=== PATIENT | male | born 1950 | race Caucasian/White ===

== ENCOUNTER 2017-03-23 10:48 | Emergency (ER) | payer OTHER, MEDICAID ==
[2017-03-23 11:02] VITALS: PULSE 50; RESP 18; TEMP 97.9
--- NOTE | 2017-03-23 12:22 | EDPHY ---
H & P Stated Complaint: L hip pain vs mechanical fall today - Medical/Surgical History Hx Asthma: Yes Hx Chronic Respiratory Disease: No Hx Diabetes: No Hx Cardiac Disease: Yes Hx Renal Disease: No Hx Cirrhosis: No Hx Alcoholism: Yes Hx HIV/AIDS: No Hx Splenectomy or Spleen Trauma: No Other PMH: DVT left leg, has new blockages. 3 [place], htn. DVT, PAD, CAD, CVA L side defecits, CABG, L BKA - Social History Smoking Status: Heavy smoker HPI/ROS: Chief complaint: Left hip injury History of present illness: This is a 66-year-old male brought to the emergency department by EMS after sustaining a left hip injury earlier today. Patient lost his balance and fell onto his hip. Since then he has had pain and swelling to the outer aspect of the hip. It makes it difficult to move it. No report of associated signs or symptoms including no open wounds, no abnormal coolness or paresthesias in the leg. No report of trauma to other parts of the body. (Wilbert Garcia) - Physical Exam Exam: General: Alert, nontoxic Skin: Large hematoma over the lateral aspect of the left hip. No open wounds. Musculoskeletal: Tenderness around the hematoma described above. He reports he is able to move his hip and his knee with minimal discomfort. He has limited range of motion but states this is his baseline. He does have a below- the-knee amputation. Vascular: There does appear to be good blood flow to the left lower leg with good capillary refill distally. Neurologic: Sensation does appear to be intact in the left leg. (Wilbert Garcia) Constitutional: Initial Vital Signs Temperature (C) 36.6 C 03/23/17 10:58 Heart Rate 50 L 03/23/17 10:58 Respiratory Rate 18 03/23/17 10:58 Blood Pressure 153/62 H 03/23/17 10:58 O2 Sat (%) 93 03/23/17 10:58 O2 Delivery Mode Room Air Allergies/Adverse Reactions: diazepam [From Valium] Allergy (Intermediate, Verified 09/05/14 07:50) becomes violent midazolam HCl [From Versed] Allergy (Intermediate, Verified 09/05/14 07:50) becomes violent skin barrier cream Allergy (Uncoded 09/05/14 07:53) Rash Home Medications: Medication Instructions Recorded Atorvastatin Calcium [Lipitor 40 40 mg PO HS 09/08/16 mg (*)] Citalopram [CeleXA 20 MG] 20 mg PO DAILY 09/08/16 Clopidogrel Bisulfate [Clopidogrel] 75 mg PO DAILY 09/08/16 Gabapentin 400 mg PO DAILY 09/08/16 Gabapentin [Neurontin 400 MG (*)] 800 mg PO HS 09/08/16 Lidocaine 5% [Lidoderm 5% Patch 1 ea TD DAILY PRN 09/08/16 (*)] Omeprazole [Prilosec 20 mg] 20 mg PO DAILY 09/08/16 levETIRAcetam [Keppra] 750 mg PO BID 09/08/16 Amiodarone HCl [Pacerone (*)] 200 mg PO DAILY #30 tab 09/18/16 Aspirin EC [Aspirin EC 325 mg (*)] 325 mg PO DAILY #0 tab 09/18/16 Ertapenem [INVanz] 1 gm IV DAILY #0 vial 09/18/16 Furosemide [Lasix 20 MG (*)] 20 mg PO DAILY #30 tab 09/18/16 Metoprolol Tartrate [Lopressor 25 25 mg PO BID #60 tab 09/18/16 mg (*)] Pantoprazole Sodium 03/23/17 Plavix 03/23/17 oxyCODONE/APAP 5/325 [Percocet 1 tab PO Q6H #6 tab 03/23/17 5/325 (*)] Medical Decision Making - Diagnostics Imaging: I viewed and interpreted images myself ED Course/Re-evaluation: Patient seen under the supervision of my secondary supervising physician Dr. Rubi Murray. Patient presents to the emergency department for a left hip injury. Patient has a [id number] amputation. His leg does appear to be neurovascularly intact. There is a large hematoma. X-rays are negative. My suspicion for other trauma is low. Patient will be discharged home. Home care is discussed. He is asked to follow up with Dr. Ojeda who is the surgeon who worked on his leg previously for recheck. Return precautions are given. Patient and family voiced understanding and agreement with plan. (Wilbert Garcia) Differential Diagnosis: Included but not limited to contusion, hematoma, bony fracture, joint dislocation (Wilbert Garcia) Other Provider: The patient was evaluated and managed by the Physician Running Instructor/ Nurse Practitioner. I discussed the patient's presentation and course with the midlevel provider with them and agree with the evaluation. My co-signature indicates that I have reviewed this chart and I agree with the findings and plan of care as documented. I am the secondary supervising physician. (Rubi Murray) Departure - Departure Disposition: Home, Routine, Self-Care Clinical Impression: Hematoma Condition: Good Instructions: Hematoma (ED) Additional Instructions: Follow-up with your surgeon for recheck this week Apply ice as discussed If symptoms worsen or new symptoms develop return to the emergency room for recheck Referrals: UNKNOWN,PCP [Other] - As per Instructions Star Ojeda MD [Medical Doctor] - As per Instructions Prescriptions: oxyCODONE/APAP 5/325 [Percocet 5/325 (*)] 1 tab PO Q6H #6 tab
[2017-03-23 12:33] VITALS: BP 136/70; O2SAT 92
== END 2017-03-23 12:33 | disposition home or self-care (01) ==
LOC: EDUNIT#
DX: S70.02XA Contusion of left hip, initial encounter (principal); F17.200 Nicotine dependence, unspecified, uncomplicated; J45.909 Unspecified asthma, uncomplicated; I10 Essential (primary) hypertension; I25.810 Atherosclerosis of coronary artery bypass graft(s) without angina pectoris; I25.2 Old myocardial infarction; Z86.73 Personal history of transient ischemic attack (TIA), and cerebral infarction without residual deficits; Z79.82 Long term (current) use of aspirin; W18.39XA Other fall on same level, initial encounter

== ENCOUNTER 2017-05-19 17:05 | Inpatient (IN) | payer OTHER, MEDICAID ==
[2017-05-19] MEDS ORDERED: ACETAMINOPHEN 500 MG TAB ONE (17:37)
[2017-05-19 17:39] LABS: COLOR YELLOW; LEUKOCYTE ESTERASE,URINE 1+ (NEGATIVE); PH,URINE 5.5 (5.0-7.5)
[2017-05-19 17:49] LABS: NITRITE,URINE POSITIVE (NEGATIVE)
[2017-05-19 17:52] LABS: BACTERIA 3+ /hpf (NONE SEEN); MUCUS 2+ /lpf (NONE-1+); RBC,URINE OCCASIONAL /hpf (0-3); WBC,URINE 15-25 /hpf (0-3)
[2017-05-19] MEDS ORDERED: ACETAMINOPHEN 325 MG TAB PO ONE ×2 (17:54)
--- NOTE | 2017-05-19 17:55 | EDPHY ---
H & P Time Seen by Provider: 05/19/17 17:34 HPI/ROS: CHIEF COMPLAINT: Epigastric pain, chest pain, foul-smelling urine HISTORY OF PRESENT ILLNESS: Patient is a 66-year-old male with multiple medical problems including previous DVT and coronary artery disease who presents to the emergency department multiple complaints. For the past few days he has had intermittent fever. He has been incontinence of urine. He has had increased frequency. No dysuria. Mild worsening incontinence. Patient was being driven to Urgent Care when he complained of epigastric pain radiating to his chest. The patient states he has been going on for days. Improves when he belches. He has no pain when I evaluated him. No shortness of breath. No cough. No lower abdominal pain or cramping. REVIEW OF SYSTEMS: My complete review of systems is negative except as mentioned in the HPI. Past Medical/Surgical History: Includes coronary artery disease, acute OH, hypertension, DVT, CVA, cardiogenic shock, urinary tract infection, peripheral vascular disease Past surgical history: Includes stent placement, CABG, left BKA secondary DVT Social history: The patient smokes. He lives with his daughter who is sorting livestock worker. Smoking Status: Heavy smoker Physical Exam: Febrile at 38.5. 128/58, 82, 16, 96% on room air GENERAL: Well-appearing, in no acute distress, alert. HEENT: Eyes normal to inspection, normal pharynx, no signs of dehydration. NECK: No lymphadenopathy, supple. RESPIRATORY: Clear to auscultation bilaterally, no rales, rhonchi or wheezing. CVS: Regular rate and rhythm, no rubs, murmurs, or gallops. ABDOMEN: Soft, nontender, nondistended, no organomegaly. Benign. Large midline surgical incision. BACK: Normal to inspection, no CVA tenderness. SKIN: Normal color, no rash, warm, dry. No pallor. Multiple tattoos. EXTREMITIES: Left BKA with prosthetic. No pedal edema, no calf tenderness, no Homans sign or cords, no joint swelling. NEURO/PSYCH: Alert and oriented x3, normal mood and affect, normal motor sensory exam. No obvious cranial nerve deficit. Constitutional: Initial Vital Signs Temperature (C) 38.5 C H 05/19/17 17:23 Heart Rate 82 05/19/17 17:23 Respiratory Rate 16 05/19/17 17:23 Blood Pressure 128/58 H 05/19/17 17:23 O2 Sat (%) 96 05/19/17 17:23 O2 Delivery Mode Room Air Allergies/Adverse Reactions: diazepam [From Valium] Allergy (Intermediate, Verified 05/19/17 17:15) becomes violent midazolam HCl [From Versed] Allergy (Intermediate, Verified 05/19/17 17:15) becomes violent Home Medications: Medication Instructions Recorded Atorvastatin Calcium [Lipitor 40 40 mg PO HS 09/08/16 mg (*)] Citalopram [CeleXA 20 MG] 20 mg PO DAILY 09/08/16 Clopidogrel Bisulfate [Clopidogrel] 75 mg PO DAILY 09/08/16 Gabapentin 400 mg PO DAILY 09/08/16 Gabapentin [Neurontin 400 MG (*)] 800 mg PO HS 09/08/16 Omeprazole [Prilosec 20 mg] 20 mg PO DAILY 09/08/16 levETIRAcetam [Keppra] 750 mg PO BID 09/08/16 Aspirin EC [Aspirin EC 325 mg (*)] 325 mg PO DAILY #0 tab 09/18/16 Furosemide [Lasix 20 MG (*)] 20 mg PO DAILY #30 tab 09/18/16 Metoprolol Tartrate [Lopressor 25 25 mg PO BID #60 tab 09/18/16 mg (*)] Plavix 03/23/17 Atorvastatin Calcium 05/19/17 Citalopram 05/19/17 Lasix 05/19/17 Medical Decision Making - Diagnostics EKG Interpretation: Sinus rhythm at 84. Normal axis. Mildly prolonged QT. Patient has mild elevation in AVR. There is mild depression in III, avf. Imaging Results: Imaging Impressions Chest X-Ray 05/19/17 17:57 Impression: Query airways disease with no superimposed acute cardiopulmonary abnormality identified. ED Course/Re-evaluation: In the emergency department I discussed possible etiologies with the patient. An IV was placed. Laboratory studies, EKG, chest x-ray and urine were obtained. Patient was noted be febrile at 38.5. Cultures were ordered. Patient took aspirin 324 mg orally prior to arrival. I reviewed the patient's laboratory studies. White count was normal. Chemistry was notable for a creatinine of 1.3. Patient's D-dimer is elevated at 2.37. UA was positive. Patient was given Rocephin 1 g IV. I discussed the case with Dr. Wyatt from the hospitalist service. The patient will undergo CT angiogram in the emergency department and then transferred to [facility]. Patient was placed isolation precautions. The patient's troponin came back elevated at 0.037 I discussed EKG findings and troponin with Dr. David Murray. He did not recommend Lovenox or heparin at this time. The patient will be transferred to the PCU. EMS transfer the patient. CT angiogram of the chest: Please refer the dictated report by Dr. Wilbert Linder. No pulmonary embolus noted. The patient does have spiculated lesion in the right upper lobe. This will need further evaluation. Differential Diagnosis: My differential includes but is not limited to urinary tract infection, pyelonephritis, bacteremia, sepsis, GERD, hiatal hernia, ACS, acute OH, pulmonary embolus, pneumonia - Data Points Laboratory Results: Laboratory Results 05/19/17 18:03 05/19/17 18:03 05/19/17 05/19/17 05/19/17 18:03 18:03 18:03 WBC 8.46 10^3/uL 10^3/uL (3.80-9.50) RBC 4.61 10^6/uL 10^6/uL (4.40-6.38) Hgb 13.9 g/dL g/dL (13.7-17.5) Hct 40.8 % % (40.0-51.0) MCV 88.5 fL fL (81.5-99.8) MCH 30.2 pg pg (27.9-34.1) MCHC 34.1 g/dL g/dL (32.4-36.7) RDW 14.3 % % (11.5-15.2) Plt Count 184 10^3/uL 10^3/uL (150-400) MPV 10.1 fL fL (8.7-11.7) Neut % (Auto) 87.3 % H % (39.3-74.2) Lymph % (Auto) 8.0 % L % (15.0-45.0) Graves % (Auto) 3.5 % L % (4.5-13.0) Eos % (Auto) 0.2 % L % (0.6-7.6) Baso % (Auto) 0.4 % % (0.3-1.7) Nucleat RBC Rel Count 0.0 % % (0.0-0.2) Absolute Neuts (auto) 7.38 10^3/uL H 10^3/uL (1.70-6.50) Absolute Lymphs (auto) 0.68 10^3/uL L 10^3/uL (1.00-3.00) Absolute Monos (auto) 0.30 10^3/uL 10^3/uL (0.30-0.80) Absolute Eos (auto) 0.02 10^3/uL L 10^3/uL (0.03-0.40) Absolute Basos (auto) 0.03 10^3/uL 10^3/uL (0.02-0.10) Absolute Nucleated RBC 0.00 10^3/uL 10^3/uL (0-0.01) Immature Gran % 0.6 % % (0.0-1.1) Immature Gran # 0.05 10^3/uL 10^3/uL (0.00-0.10) D-Dimer 2.71 ug/mLFEU H ug/mLFEU (0.00-0.50) Sodium 136 mEq/L mEq/L (134-144) Potassium 4.8 mEq/L mEq/L (3.5-5.2) Chloride 99 mEq/L mEq/L (97-110) Carbon Dioxide 23 mEq/l mEq/l (22-31) Anion Gap 14 mEq/L mEq/L (8-16) BUN 20 mg/dL mg/dL (7-23) Creatinine 1.3 mg/dL mg/dL (0.7-1.3) Estimated GFR 55 Glucose 93 mg/dL mg/dL (70-100) Calcium 8.8 mg/dL mg/dL (8.5-10.4) Total Bilirubin 1.1 mg/dL mg/dL (0.1-1.4) Conjugated Bilirubin 0.7 mg/dL H mg/dL (0.0-0.5) Unconjugated Bilirubin 0.4 mg/dL mg/dL (0.0-1.1) AST 26 IU/L IU/L (17-59) ALT 25 IU/L IU/L (21-72) Alkaline Phosphatase 144 IU/L H IU/L (38-126) Troponin I 0.037 ng/mL H ng/mL (0-0.034) Total Protein 7.2 g/dL g/dL (6.3-8.2) Albumin 3.7 g/dL g/dL (3.5-5.0) Lipase 47.0 IU/L IU/L (23-300) Urine Color Urine Appearance Urine pH Ur Specific [place] Urine Protein Urine Ketones Urine Blood Urine Nitrate Urine Bilirubin Urine Urobilinogen Ur Leukocyte Esterase Urine RBC Urine WBC Ur Epithelial Cells Urine Bacteria Urine Mucus Urine Glucose 05/19/17 17:30 WBC RBC Hgb Hct MCV MCH MCHC RDW Plt Count MPV Neut % (Auto) Lymph % (Auto) Graves % (Auto) Eos % (Auto) Baso % (Auto) Nucleat RBC Rel Count Absolute Neuts (auto) Absolute Lymphs (auto) Absolute Monos (auto) Absolute Eos (auto) Absolute Basos (auto) Absolute Nucleated RBC Immature Gran % Immature Gran # D-Dimer Sodium Potassium Chloride Carbon Dioxide Anion Gap BUN Creatinine Estimated GFR Glucose Calcium Total Bilirubin Conjugated Bilirubin Unconjugated Bilirubin AST ALT Alkaline Phosphatase Troponin I Total Protein Albumin Lipase Urine Color YELLOW Urine Appearance HAZY Urine pH 5.5 (5.0-7.5) Ur Specific [place] 1.020 (1.002-1.030) Urine Protein 2+ H (NEGATIVE) Urine Ketones NEGATIVE (NEGATIVE) Urine Blood 3+ H (NEGATIVE) Urine Nitrate POSITIVE H (NEGATIVE) Urine Bilirubin NEGATIVE (NEGATIVE) Urine Urobilinogen 2.0 EU H EU (0.2-1.0) Ur Leukocyte Esterase 1+ H (NEGATIVE) Urine RBC OCCASIONAL /hpf /hpf (0-3) Urine WBC 15-25 /hpf H /hpf (0-3) Ur Epithelial Cells 1+ /lpf /lpf (NONE-1+) Urine Bacteria 3+ /hpf H /hpf (NONE SEEN) Urine Mucus 2+ /lpf H /lpf (NONE-1+) Urine Glucose NEGATIVE (NEGATIVE) Medications Given: Discontinued Medications Acetaminophen (Tylenol) 650 mg PO EDNOW ONE Stop: 05/19/17 17:55 Last Admin: 05/19/17 17:55 Dose: 650 mg Acetaminophen (Tylenol) 325 mg PO EDNOW ONE Stop: 05/19/17 17:55 Last Admin: 07/03/17 17:55 Dose: 325 mg Sodium Chloride (Ns) 500 mls @ 1,000 mls/hr IV ONCE ONE PRN Reason: Protocol Stop: 05/19/17 18:25 Last Admin: 05/19/17 19:28 Dose: 500 mls Ceftriaxone Sodium/Dextrose (Rocephin 1 Gm (Premix)) 50 mls @ 100 mls/hr IV EDNOW ONE PRN Reason: Protocol Stop: 05/19/17 18:53 Last Admin: 05/19/17 19:29 Dose: 50 mls Departure - Departure Clinical Impression: Abdominal pain Qualifiers: Abdominal location: epigastric Qualified Code(s): R10.13 - Epigastric pain Chest pain Qualifiers: Chest pain type: unspecified Qualified Code(s): R07.9 - Chest pain, unspecified Urinary incontinence Qualifiers: Urinary Incontinence type: other incontinence Qualified Code(s): N39.498 - Other specified urinary incontinence Condition: Good
[2017-05-19] MEDS ORDERED: NS 500 ML IV ONE (17:56)
[2017-05-19 18:13] LABS: % IMMATURE GRANULYOCYTES 0.6 % (0.0-1.1); ABSOLUTE IMMATURE GRANULOCYTES 0.05 10^3/uL (0.00-0.10); ADD DIFF? NO; ADD MORPH? NO; ADD SCAN? YES; ATYPICAL LYMPHOCYTE FLAG 0 (0-99); FRAGMENT RBC FLAG 0 (0-99); HEMATOCRIT 40.8 % (40.0-51.0); HEMOGLOBIN 13.9 g/dL (13.7-17.5); LEFT SHIFT FLG 0 (0-99); LIPEMIA HEMOLYSIS FLAG 90 (0-99); MEAN CELL HEMOGLOBIN 30.2 pg (27.9-34.1); MEAN CELL HEMOGLOBIN CONCENTR. 34.1 g/dL (32.4-36.7); MEAN CELL VOLUME 88.5 fL (81.5-99.8); MEAN PLATELET VOLUME 10.1 fL (8.7-11.7); PLATELET COUNT 184 10^3/uL (150-400); RED BLOOD CELL COUNT 4.61 10^6/uL (4.40-6.38); RED CELL DISTRIBUTION WIDTH 14.3 % (11.5-15.2)
[2017-05-19 18:15] LABS: PLATELET CLUMPS FLAG 260 (0-99)
--- NOTE | 2017-05-19 18:20 | CPEKG ---
Heart Rate: 84 RR Interval: 714 P-R Interval: 136 QRSD Interval: 78 QT Interval: 416 QTC Interval: 492 P [place]: 74 QRS [place]: 51 T Wave [place]: -31 EKG Severity - ABNORMAL ECG - EKG Impression: SINUS RHYTHM EKG Impression: PROBABLE LEFT ATRIAL ABNORMALITY EKG Impression: CONSIDER INFERIOR INFARCT EKG Impression: BORDERLINE PROLONGED QT INTERVAL Electronically Signed By: Karlee Wood 19-May-2017 22:46:00
[2017-05-19 18:27] LABS: SCAN NEGATIVE
[2017-05-19 18:30] LABS: ALANINE AMINOTRANSFERASE 25 IU/L (21-72); ALBUMIN 3.7 g/dL (3.5-5.0); ALKALINE PHOSPHATASE 144 IU/L (38-126); ANION GAP 14 mEq/L (8-16); ASPARTATE AMINOTRANSFERASE 26 IU/L (17-59); BILIRUBIN,TOTAL 1.1 mg/dL (0.1-1.4); BILIRUBIN-CONJUGATED 0.7 mg/dL (0.0-0.5); BILIRUBIN-UNCONJUGATED 0.4 mg/dL (0.0-1.1); CALCIUM 8.8 mg/dL (8.5-10.4); CARBON DIOXIDE 23 mEq/l (22-31); CHLORIDE 99 mEq/L (97-110); CREATININE 1.3 mg/dL (0.7-1.3); GLOMERULAR FILTRATION RATE 55; GLUCOSE 93 mg/dL (70-100); POTASSIUM 4.8 mEq/L (3.5-5.2); SODIUM 136 mEq/L (134-144); TOTAL PROTEIN 7.2 g/dL (6.3-8.2)
[2017-05-19] MEDS ORDERED: ONDANSETRON 4 MG/2 ML VIAL IVP PRN (18:35)
[2017-05-19] MEDS ORDERED: ONDANSETRON DISINTEGRATING 4 MG TAB PO PRN (18:35)
[2017-05-19] MEDS ORDERED: NS 1,000 ML IV ONE (18:35)
[2017-05-19 18:40] LABS: TROPONIN I 0.037 ng/mL (0-0.034)
[2017-05-19] MEDS ORDERED: IOPAMIDOL (ISOVUE 370) 100 ML BTL IV ONE (18:45)
[2017-05-19] MEDS: ERTAPENEM 1 GM in NS 100 ML IV SCH (20:52)
[2017-05-19] MEDS ORDERED: GABAPENTIN 400 MG CAP PO SCH (21:00)
--- NOTE | 2017-05-19 22:31 | GHP ---
[f rep st] HISTORY AND PHYSICAL DATE OF ADMISSION: 05/19/2017 CHIEF COMPLAINT: Chest pain and encephalopathy. HISTORY OF PRESENT ILLNESS: A 66-year-old male with a history of coronary artery disease status pos t a [id number] [place] in September 2016, with cardiogenic shock and balloon pump therapy, who prese nts with complaints of substernal chest discomfort that began this evening while sitting at rest. T he patient reports that it was a pressure-like sensation under his mid chest as if he had a gas bubb le stuck there. He had associated shortness of breath with it. He reports that it lasted for about 10-15 minutes and then resolved spontaneously. Reports that he had nausea, no vomiting. Some ligh theadedness with it, and some shortness of breath with it. He cannot say distinctly whether it was similar or not to his previous LA. The patient's activity level, per the family's report, is very l ow at home. He has nearly full support with food preparation, cleaning, and self hygiene. The fami ly has noticed increased confusion in the past 24-48 hours with more somnolence than even his baseli ne level of inactivity. The patient denies any active shortness of breath. He does endorse some ab dominal discomfort. Denies any lower extremity edema, subjective fevers or chills, new rashes. He does report a couple episodes of diarrhea. Denies any dysuria or hematuria. PAST MEDICAL HISTORY: 1. Coronary artery disease, status post stenting and balloon pump support in September 2016. 2. History of an ESBL E coli urinary tract infection. 3. History of acute upper GI bleed. 4. Peripheral vascular disease. 5. History of bone infection leading to amputation below the knee of the left lower extremity. 6. Tobacco abuse. 7. COPD. 8. History of deep venous thrombosis. 9. History of SVT. 10. Hypertension. 11. Hyperlipidemia. 12. Mild cognitive impairment. 13. Multiple CVAs. 14. Gastroesophageal reflux disease. SOCIAL HISTORY: The patient reports smoking 4 cigarettes a day, although the family reports he smok es more than that. Denies alcohol or illicit drugs. FAMILY HISTORY: Positive for coronary artery disease in multiple relatives. REVIEW OF SYSTEMS: A 10-point review of systems is negative, with the exception of that reported in the HPI. PHYSICAL EXAMINATION: VITAL SIGNS: Blood pressure 115/41, heart rate 69, respiratory rate 18, satu rating 100% on 2 L. He is 38.5 at presentation. LABORATORY DATA: White count 8.4, hematocrit 40.8, platelets 184. D-dimer 2.7. Creatinine 1.3, ne ar baseline. Troponin 0.037. Urinalysis shows 15-25 white blood cells, 3+ bacteria, 2+ mucus, nitr ite positive, 2+ protein. EKG, which I personally reviewed and interpreted: Shows sinus rhythm, normal axis, normal intervals . There is ST depression inferiorly in leads 2, 3, aVF, V5 and V6. This is very different from pre vious. CTA of the chest: Show no pulmonary embolism. There is a comment on obstructive-appearing lung dis ease and a question of a spiculated mass. ASSESSMENT AND PLAN: This is a 66-year-old male with a history of coronary artery disease presentin g with chest pain. 1. Acute chest pain. The patient does have a slightly elevated troponin and EKG changes in the inf erolateral leads, certainly concerning for an evolving [id number] myocardial infarction. Jules bermudez has been contacted from the emergency department. We will check serial troponins and EKGs th is evening. Dr. Murray did not recommend anticoagulation at this time. We will follow the patien t on the PCU. I have made the patient n.p.o. in anticipation of possible cardiac catheterization in the morning. 2. Acute urinary tract infection. The patient has a history of an extended-spectrum beta-lactamase urinary tract infection. I am going to empirically treat with ertapenem overnight. Urine has been sent for culture, as well as blood culture. We will fluid resuscitate and follow. 3. History of hypertension. The patient's blood pressures are borderline currently. We will hold any home antihypertensives and follow the patient's clinical progression. 4. Fever, suspect secondary to urinary tract infection. Blood cultures and urine cultures are pend ing. 5. Acute encephalopathy, likely metabolic from urinary tract infection. We will follow the patient 's mentation on IV antibiotics and supportive care. 6. Prophylaxis with Lovenox. 7. Diet. The patient is n.p.o. DISPOSITION: I am expecting greater than 2 midnights as the patient has a history of coronary disea se and is presenting with acute UTI. I have discussed the case with the emergency room physician. The patient will be triaged to the PCU for cardiac monitoring and IV antibiotics. /[id number]/MODL
[2017-05-19] MEDS: ACETAMINOPHEN 325 MG TAB PO PRN (22:53)
[2017-05-20 05:01] LABS: % IMMATURE GRANULYOCYTES 0.5 % (0.0-1.1); ABSOLUTE IMMATURE GRANULOCYTES 0.02 10^3/uL (0.00-0.10); ADD DIFF? NO; ADD MORPH? NO; ADD SCAN? NO; ATYPICAL LYMPHOCYTE FLAG 0 (0-99); FRAGMENT RBC FLAG 0 (0-99); HEMOGLOBIN 11.9 g/dL (13.7-17.5); LEFT SHIFT FLG 10 (0-99); LIPEMIA HEMOLYSIS FLAG 80 (0-99); MEAN CELL HEMOGLOBIN 29.7 pg (27.9-34.1); MEAN CELL HEMOGLOBIN CONCENTR. 33.1 g/dL (32.4-36.7); MEAN CELL VOLUME 89.8 fL (81.5-99.8); MEAN PLATELET VOLUME 10.2 fL (8.7-11.7); PLATELET CLUMPS FLAG 0 (0-99); PLATELET COUNT 137 10^3/uL (150-400); RED BLOOD CELL COUNT 4.01 10^6/uL (4.40-6.38); RED CELL DISTRIBUTION WIDTH 14.1 % (11.5-15.2)
[2017-05-20 05:50] LABS: ANION GAP 11 mEq/L (8-16); CALCIUM 8.4 mg/dL (8.5-10.4); CARBON DIOXIDE 19 mEq/l (22-31); CHLORIDE 108 mEq/L (97-110); CREATININE 1.3 mg/dL (0.7-1.3); GLOMERULAR FILTRATION RATE 55; GLUCOSE 102 mg/dL (70-100); SODIUM 138 mEq/L (134-144)
[2017-05-20 05:57] LABS: TROPONIN I 0.098 ng/mL (0-0.034)
--- NOTE | 2017-05-20 08:40 | CPEKG ---
Heart Rate: 79 RR Interval: 759 P-R Interval: 118 QRSD Interval: 78 QT Interval: 404 QTC Interval: 464 P [place]: 0 QRS [place]: 64 T Wave [place]: -70 EKG Severity - ABNORMAL ECG - EKG Impression: SINUS RHYTHM EKG Impression: PROBABLE INFERIOR/INFEROLATERAL INFARCT, AGE INDETERMINATE Electronically Signed By: Magdaleno Kidd 20-May-2017 11:54:45
[2017-05-20] MEDS ORDERED: cefTRIAXone 1 GM in D5W 50 ML IV SCH (09:00)
[2017-05-20] MEDS ORDERED: ENOXAPARIN 40 MG/0.4 ML SYR SC SCH (09:00)
--- NOTE | 2017-05-20 14:07 | GCON ---
[f rep st] CONSULTATION CARDIOLOGY CONSULTATION REFERRING PHYSICIAN: Dr. Wyatt REASON FOR CONSULTATION: I was asked to see the patient in consultation by Dr. Wyatt because of c hest discomfort, abnormal EKG, and elevated troponin, in a patient with known coronary disease and p rior cardiac stenting. HISTORY OF PRESENT ILLNESS: The patient's reason for presenting to the emergency room initially was because of foul-smelling urine. On his way to the hospital, when he was being taken to urgent care by his family, he complained of chest discomfort, which was a new problem for him, that is, he has not had chest discomfort in the past month or two, according to the patient and the patient's family . He was ultimately admitted to the hospital and troponins were cycled along with EKG, which demons trates significant ST-segment depression in inferolateral leads, which appears to be new compared to EKGs obtained during a very prolonged hospitalization in late August and early September of last vega dick. The troponin was elevated initially at 0.037, then normal, then found to be 0.098 early this mo rning, and has trended lower at 0.078 by mid morning today. At the time of my evaluation, the patie nt denies chest discomfort, pressure or tightness today, and has had none overnight. He has not had cardiac rhythm disturbance of significance, other than occasional premature beats on the telemetry monitoring. PAST MEDICAL HISTORY: The patient has an extensive past medical history, and I will focus mainly on his history of coronary disease. The patient had a very complex and dangerous balloon angioplasty and stent implantation of the left main, LAD, and left main/left circumflex bifurcation, performed u nder the care of Dr. Lundberg, which was done with Impella support, more specifically, and not balloo n pump support as was recorded. The operative note shows that this was actually an Impella device. That procedure was complicated by a gastrointestinal bleed, requiring transfusion and a prolonged h ospital stay. The patient has a history of peripheral vascular disease and has had a history of osteomyelitis lead ing to an amputation of the left lower extremity. He has a history of tobacco abuse, alcoholism, CO PD, history of deep venous thrombosis, SVT, hypertension, dyslipidemia, cognitive impairment, multip le CVAs, and gastroesophageal reflux disease. IMAGING STUDIES: On yesterday's CT scan of the chest on admission, he was found to have spiculated nodules in the right middle lobe of his lung, which may represent underlying carcinoma. SOCIAL HISTORY: Pertinent for the fact that he continues to smoke at least 4 cigarettes a day at ga s own admission, although the family reports he smokes much more frequently than that. He denies cu rrent use of alcohol or illicit drugs. FAMILY HISTORY: Pertinent for the fact that his father at 56 of heart failure and his mother a lso with significant heart and coronary disease. REVIEW OF SYSTEMS: His 10-point review of systems is otherwise negative, except as mentioned in the HPI. PHYSICAL EXAMINATION: GENERAL: Today, the patient is in a semi- position in the room but robbi es current chest pain or other problems at present. VITAL SIGNS: Reveal a blood pressure of 122/51 , pulse 74 and regular, respirations 18 and unlabored, oxygen saturation is 93% on room air. His te mperature is 36.4. NECK: Reveals no JVD. HEART: Reveals normal S1 and S2, without S3 or S4. He does have a faint systolic murmur consistent with aortic sclerosis. LUNGS: Reveal decreased air mo vement bilaterally. ABDOMEN: Benign, with positive bowel sounds. It is nondistended and nontender . EXTREMITIES: Reveal a prior left-sided amputation. LABORATORY DATA: His EKG reveals normal sinus rhythm, with ST-segment depression in the inferolater al leads, which is consistent with ischemia. The ST depression is less marked in the inferior leads than it was yesterday and is more consistent with prior EKGs obtained during his last hospitalizati on. There is flat and horizontal ST depression in V4, V5, and V6, which is probably consistent with ischemia, which does appear to be new. His other laboratory studies have been reviewed and reveal a calcium level of 8.4, glucose of 102, c arbon dioxide of 19, and a hemoglobin and hematocrit of 11.9 and 36.0, which is down from 13.9 and 4 0.8 on admission. His platelet count has also decreased from 184 to 137 on this morning's study. His urine is positive for nitrites, 2+ protein, 15-25 white blood cells, and 3+ bacteria. I believe the culture is pending. IMPRESSION AND PLAN: The patient has serious and flow-limiting proximal coronary disease which was addressed in a somewhat heroic and very complex intervention, performed under the care of Dr. Nancy merritt in late August of last year, which was complicated by cardiogenic shock, upper gastrointestinal b leeding and also a prolonged hospital stay, during which the patient nearly . I think in the ab sence of an ST-segment elevation infarction or ongoing chest pain, the patient should not receive ca rdiac catheterization as a primary intervention. I am also concerned about the epigastric abdominal pain he has experienced, along with his drop in hemoglobin and platelet count, along with his histo ry of a prior upper gastrointestinal bleed; I would be concerned about the possibility of ulceration . I certainly would not want to take him to the laborer hoisting until those issues have been addressed and stabilized. I think, at some point, it may be reasonable to perform a vasodilator stress test to shaina fountainine just how large a zone of ischemia is noted to be on a noninvasive study, before proceeding or jumping in with an invasive procedure that might be very risky in his particular case. Thank you for this interesting consultation. Will follow along with you while the patient is in the hospital. /[id number]/MODL
[2017-05-20] MEDS ORDERED: NON-FORMULARY NEW DRUG (Levetiracetam [Keppra] 750 MG) PO SCH (14:30)
--- NOTE | 2017-05-20 14:30 | HOSPPROG ---
Hospitalist Progress Note Assessment/Plan: # Acute Chest pain - EKG ( personally reviewed and interpreted) new ST depressions inferolaterally troponin 0.09 this a.m. up from admit- chest pain resolved overnight - continued to track troponin - continue telemetry monitoring - consider noninvasive stress test per to set to ascertain area of ischemia once established patient is not acutely GI bleeding # acute anemia- hemoglobin 13-> 11 overnight- history of severe GI bleed in past suspected acute drop related to fluid resuscitation not acute GI bleed - check Hemoccult - trend H&H - pantoprazole IV twice daily empirically # coronary artery disease- will continue all patient's home medications- oxygen saturations 94% on room air - work up as above - cardiology following # UTI - history of the ESBL E coli- blood and urine cultures NGTD - cont empiric ertapenem until culture results available # acute encephalopathy- presumed secondary to UTI- seems mildly improved today - continue antibiotics and IV fluids if p.o. intake is poor # prophylaxis- will hold enoxaparin in till we clarify whether the patient's H &H is dropping # diet cardiac # disposition greater than 2 midnights as patient with multiple medical comorbidities requiring diagnostic workup and care I have discussed the case with Cardiology we will plan on noninvasive diagnostics 1st is patient high risk for invasive procedures Subjective: chest pain has not recurred overnight Objective: Vital Signs Temp Pulse Resp BP Pulse Ox 36.4 C 81 18 110/53 L 94 05/20/17 08:00 05/20/17 12:00 05/20/17 12:00 05/20/17 12:00 05/20/17 12:00 Laboratory Results 05/20/17 04:50 05/20/17 04:50 05/19/17 05/20/17 05/21/17 05:59 05:59 05:59 Intake Total 550 Output Total 400 Balance 150 - Physical Exam Constitutional: no apparent distress Eyes: anicteric sclera Ears, Nose, Mouth, Throat: dry mucous membranes Cardiovascular: regular rate and rhythym Respiratory: no respiratory distress Gastrointestinal: normoactive bowel sounds, soft, non-tender abdomen Genitourinary: no bladder fullness Skin: warm, normal color Musculoskeletal: No asymmetric calves Neurologic: AAOx3 Psychiatric: flat affect Lymph, Heme, Immunologic: no cervical LAD ICD10 Worksheet Patient Problems: Problems Problem Status Onset Abdominal pain Acute Chest pain Acute Urinary incontinence Acute Chronic Disease Mgmt/Transitional Care Acute Anemia Acute Atrial fibrillation Acute Cardiac ischemia Acute Chest pain Acute DVT (deep venous thrombosis) Acute Elevated INR Acute Elevated troponin I level Acute GI hemorrhage Acute
[2017-05-20] MEDS: NICOTINE 14 MG/24 HR PATCH TD SCH (15:58)
[2017-05-20] MEDS: ASPIRIN EC 325 MG TAB PO SCH (15:59)
[2017-05-20] MEDS: levETIRAcetam 500 MG TAB PO SCH ×2 (15:59→20:17)
[2017-05-20] MEDS: METOPROLOL TARTRATE 25 MG TAB PO SCH ×2 (16:00→20:17)
[2017-05-20] MEDS: CITALOPRAM 20 MG TAB PO SCH (16:00)
[2017-05-20] MEDS: CLOPIDOGREL BISULFATE 75 MG TAB PO SCH (16:00)
[2017-05-20] MEDS: ATORVASTATIN CALCIUM 40 MG TAB PO SCH (16:00)
[2017-05-20 18:40] LABS: HEMATOCRIT 32.9 % (40.0-51.0)
[2017-05-20] MEDS: PANTOPRAZOLE SODIUM 40 MG in NS 100 ML IV SCH (20:17)
[2017-05-20] MEDS: GABAPENTIN 400 MG CAP PO SCH (20:18)
[2017-05-20] MEDS: ERTAPENEM 1 GM in NS 100 ML IV SCH (21:35)
[2017-05-21 04:38] LABS: HEMATOCRIT 34.3 % (40.0-51.0); HEMOGLOBIN 11.4 g/dL (13.7-17.5); MEAN CELL HEMOGLOBIN CONCENTR. 33.2 g/dL (32.4-36.7); MEAN CELL VOLUME 90.3 fL (81.5-99.8); RED BLOOD CELL COUNT 3.8 10^6/uL (4.40-6.38); RED CELL DISTRIBUTION WIDTH 14.2 % (11.5-15.2)
[2017-05-21 04:58] LABS: ANION GAP 8 mEq/L (8-16); CALCIUM 8.3 mg/dL (8.5-10.4); CARBON DIOXIDE 21 mEq/l (22-31); CHLORIDE 109 mEq/L (97-110); CREATININE 1.2 mg/dL (0.7-1.3); GLOMERULAR FILTRATION RATE > 60; GLUCOSE 100 mg/dL (70-100); POTASSIUM 4.2 mEq/L (3.5-5.2); SODIUM 138 mEq/L (134-144)
[2017-05-21] MEDS: PANTOPRAZOLE SODIUM 40 MG in NS 100 ML IV SCH (07:35)
[2017-05-21] MEDS: NICOTINE 14 MG/24 HR PATCH TD SCH (07:35)
[2017-05-21] MEDS: levETIRAcetam 500 MG TAB PO SCH ×2 (07:36→19:30)
[2017-05-21] MEDS: ASPIRIN EC 325 MG TAB PO SCH (07:36)
[2017-05-21] MEDS: ATORVASTATIN CALCIUM 40 MG TAB PO SCH (07:36)
[2017-05-21] MEDS: CLOPIDOGREL BISULFATE 75 MG TAB PO SCH (07:37)
[2017-05-21] MEDS: METOPROLOL TARTRATE 25 MG TAB PO SCH ×2 (07:37→19:31)
[2017-05-21] MEDS: CITALOPRAM 20 MG TAB PO SCH (07:37)
[2017-05-21] MEDS ORDERED: cefTRIAXone 1 GM in D5W 50 ML IV SCH (09:00)
--- NOTE | 2017-05-21 14:11 | HOSPPROG ---
Hospitalist Progress Note Assessment/Plan: # Acute Chest pain - EKG -new ST depressions inferolaterally troponin 0.05 this a.m. - chest pain resolved overnight - no recurrence of symptoms - continue telemetry monitoring - Dr. Sanchez recommending medical management - no stress testing # acute anemia- hemoglobin 13-> 11 remained 11 overnight- history of severe GI bleed in past- hemoccult negative overnight suspected acute drop related to fluid resuscitation not acute GI bleed - continue PO PPI # coronary artery disease- will continue all patient's home medications- oxygen saturations 94% on room air TELE (personally reviewed and interpreted) remains in sinus - continue medical management - cardiology following # UTI - history of the ESBL E coli- blood NGTD - and urine cultures with Ecoli sensitive to Ceftriaxone - change ertapenem to ceftriaxone # acute encephalopathy- presumed secondary to UTI- improved again today - continue antibiotics # spiculated mass on CT - concerning for possible malignancy - very peripheral on right -dw Andorsky from [facility] - recommends PET at dc # prophylaxis- restart enoxaparin # diet cardiac # disposition greater than 2 midnights as patient with multiple medical comorbidities requiring diagnostic workup and care I have discussed the case with Cardiology - pt very high risk for invasive procedures - they recommend medical management Subjective: feeling alot better Objective: Vital Signs Temp Pulse Resp BP Pulse Ox 36.6 C 63 16 104/49 L 93 05/21/17 11:37 05/21/17 11:37 05/21/17 11:37 05/21/17 11:37 05/21/17 11:37 Laboratory Results 05/21/17 04:04 05/21/17 04:04 05/20/17 05/21/17 05/22/17 05:59 05:59 05:59 Intake Total 550 800 Output Total 400 200 Balance 150 600 - Physical Exam Constitutional: appears nourished Eyes: anicteric sclera Ears, Nose, Mouth, Throat: moist mucous membranes Cardiovascular: regular rate and rhythym, systolic murmur Respiratory: no respiratory distress, no rales or rhonchi Gastrointestinal: normoactive bowel sounds, soft, non-tender abdomen Genitourinary: no bladder fullness Skin: warm, normal color Musculoskeletal: No asymmetric calves Neurologic: AAOx3 Psychiatric: interacting appropriately, not anxious Lymph, Heme, Immunologic: no cervical LAD ICD10 Worksheet Patient Problems: Problems Problem Status Onset Abdominal pain Acute Chest pain Acute ESBL (extended spectrum beta-lactamase) producing bacteria infection Acute ~ Urinary incontinence Acute Chronic Disease Mgmt/Transitional Care Acute Anemia Acute Atrial fibrillation Acute Cardiac ischemia Acute Chest pain Acute DVT (deep venous thrombosis) Acute Elevated INR Acute Elevated troponin I level Acute GI hemorrhage Acute
[2017-05-21] MEDS: ENOXAPARIN 40 MG/0.4 ML SYR SC SCH (17:21)
[2017-05-21] MEDS: GABAPENTIN 400 MG CAP PO SCH (19:30)
[2017-05-21] MEDS: PANTOPRAZOLE SODIUM 40 MG TAB PO SCH (19:31)
[2017-05-21] MEDS: ACETAMINOPHEN 325 MG TAB PO PRN (21:40)
[2017-05-22 04:25] LABS: HEMATOCRIT 36.6 % (40.0-51.0); HEMOGLOBIN 11.9 g/dL (13.7-17.5); MEAN CELL HEMOGLOBIN 29.5 pg (27.9-34.1); MEAN CELL HEMOGLOBIN CONCENTR. 32.5 g/dL (32.4-36.7); MEAN CELL VOLUME 90.8 fL (81.5-99.8); RED BLOOD CELL COUNT 4.03 10^6/uL (4.40-6.38); RED CELL DISTRIBUTION WIDTH 14.3 % (11.5-15.2)
[2017-05-22 04:42] LABS: ANION GAP 10 mEq/L (8-16); CALCIUM 8.4 mg/dL (8.5-10.4); CARBON DIOXIDE 22 mEq/l (22-31); CHLORIDE 108 mEq/L (97-110); CREATININE 1.1 mg/dL (0.7-1.3); GLOMERULAR FILTRATION RATE > 60; GLUCOSE 97 mg/dL (70-100); POTASSIUM 3.8 mEq/L (3.5-5.2); SODIUM 140 mEq/L (134-144)
[2017-05-22 07:36] VITALS: RESP 18
[2017-05-22] MEDS: NICOTINE 14 MG/24 HR PATCH TD SCH (10:20)
[2017-05-22] MEDS: ENOXAPARIN 40 MG/0.4 ML SYR SC SCH (10:20)
[2017-05-22] MEDS: ASPIRIN EC 325 MG TAB PO SCH (10:21)
[2017-05-22] MEDS: levETIRAcetam 500 MG TAB PO SCH (10:21)
[2017-05-22] MEDS: PANTOPRAZOLE SODIUM 40 MG TAB PO SCH (10:21)
[2017-05-22] MEDS: CLOPIDOGREL BISULFATE 75 MG TAB PO SCH (10:21)
[2017-05-22] MEDS: CITALOPRAM 20 MG TAB PO SCH (10:21)
[2017-05-22] MEDS: ATORVASTATIN CALCIUM 40 MG TAB PO SCH (10:21)
[2017-05-22] MEDS: METOPROLOL TARTRATE 25 MG TAB PO SCH (10:22)
--- NOTE | 2017-05-22 10:38 | PDIAF ---
- Diagnosis Diagnosis: uti Code Status: Full Code - Medication Management Discharge Medications: Medications to Continue on Transfer Atorvastatin Calcium [Lipitor 40 mg (*)] 40 mg PO DAILY 09/08/16 [Last Taken 01/31] Citalopram [CeleXA 20 MG] 20 mg PO DAILY 09/08/16 [Last Taken 05/19/17] Gabapentin [Neurontin 400 MG (*)] 800 mg PO HS 09/08/16 [Last Taken 05/18/17] Omeprazole [Prilosec 20 mg] 20 mg PO DAILY 09/08/16 [Last Taken 05/19/17] levETIRAcetam [Keppra] 750 mg PO BID 09/08/16 [Last Taken 05/19/17 1 tab] Aspirin EC [Aspirin EC 325 mg (*)] 325 mg PO DAILY #0 tab 09/18/16 [Last Taken 05/19/17] Metoprolol Tartrate [Lopressor 25 mg (*)] 25 mg PO BID #60 tab 09/18/16 [Last Taken 05/19/17 1 tab] Clopidogrel Bisulfate [Plavix (*)] 75 mg PO DAILY 03/23/17 [Last Taken 05/19/17] Furosemide [Lasix 20 MG (*)] 20 mg PO DAILY 05/19/17 [Last Taken 05/19/17] Cephalexin [Keflex (*)] 1,000 mg PO TID #9 cap 05/22/17 [Last Taken Unknown] Discharge Medications: Refer to the Discharge Home Medication list for PRN reason. - Orders Services needed: Home Care, Physical Therapy Home Care Face to Face: I certify that this patient was under my care and that I had the required [id number] encounter meeting the encounter requirements on the discharge day. My findings support the fact that the patient is homebound as defined in CMS Chapter 7 Medicare Benefits Manual 30.1.1, The condition of the patient is such that there exists a normal inability to leave home and consequently, leaving home would require a considerable and taxing effort. Diet Recommendation: cardiac -low fat low salt Diet Texture: Regular Texture Diet - Follow Up Care Current Providers and Referrals: Eliot Zamorano MD [Medical Doctor] - Eliot Novak DO [Primary Care Provider] - As per Instructions Reji Winchester MD [Medical Doctor] -
[2017-05-22 16:32] VITALS: BP 125/63; PULSE 68; TEMP 99.9; O2SAT 95
--- NOTE | 2017-05-22 18:10 | GDS ---
[f rep st] DISCHARGE SUMMARY DISCHARGE DIAGNOSES: 1. Acute chest pain. 2. Urinary tract infection. 3. Acute metabolic encephalopathy. 4. Coronary artery disease. 5. Chronic anemia. 6. New spiculated mass on CT. HISTORY OF PRESENT ILLNESS: This is a 66-year-old male with multiple medical comorbidities, who pre sents to the hospital on 05/19/2017 with confusion, lethargy, and isolated episode of chest pain. F or details of the patient's initial presentation, please see the history and physical dated 05/19/20 17. CONSULTATIVE SERVICES: Include Cardiology. PROCEDURES: On 05/19/2017, patient had a CTA of the chest, which showed no pulmonary embolism but a speculated mass in the periphery of his right lung. HOSPITAL COURSE: By issue: 1. Acute chest pain. Patient has an extensive cardiac history with complications on his previous a dmissions during NSTEMI and cardiovascular collapse. Patient had indeterminate troponins and new EK G changes inferolaterally, was seen by Cardiology, who felt he was incredibly high risk for invasive procedures, which they felt were likely going to be low yield for revascularization. Patient was m onitored with serial troponins, EKGs. He did not have recurrence of his symptoms, and his troponins did remain indeterminate. The decision was made to medically manage rather than additional stress testing or invasive imaging. Patient is chest pain-free on the day disposition on his cardiac medic ations, and his troponin did not peak above an indeterminate range. Patient will follow in the outp atient setting with Dr. Winchester. 2. New spiculated mass on chest CT, certainly concerning for possible malignancy. Dr. Zamorano was curb sided during this hospital stay and is arranging an outpatient PET scan for this patient. Faraz etienne will be contacted post disposition to facilitate this followup. 3. Acute urinary tract infection. Patient was treated with ceftriaxone, ultimately grew E coli whi ch was sensitive to cephalosporins. He is being discharged to complete a full 7-day course on Kefle x. 4. Acute encephalopathy thought metabolic as the patient did improve his mentation after supportive care and the antibiotics. Patient is at his baseline on the day of disposition. MEDICATIONS AT THE TIME OF DISPOSITION: Please reference the med rec printed on 05/22/2017. FOLLOWUP APPOINTMENTS: 1. With Dr. Zamorano for PET scanning and evaluation of this spiculated lung mass. 2. With Dr. Winchester for ongoing management of his advanced coronary artery disease. 3. With his primary care provider for all other medical management. PENDING STUDIES AT THE TIME OF THIS DICTATION: Include blood cultures, which were drawn 05/19/2017. They are preliminary. No growth to date at the time of discharge. I spent greater than 30 minutes in the planning and coordination of this discharge. /[id number]/MODL
== END 2017-05-22 18:50 | disposition home or self-care (01) | DRG 689 ==
LOC: CED 17:05 → CEDHOLD 18:35 → EEVIPCON 18:35 → F2W 20:14
PROVIDERS: ADMIT Hospitalist; ATTEND Hospitalist
DX: N39.0 Urinary tract infection, site not specified (principal); B96.20 Unspecified Escherichia coli [E. coli] as the cause of diseases classified elsewhere; G93.41 Metabolic encephalopathy; R07.9 Chest pain, unspecified; D64.9 Anemia, unspecified; R91.8 Other nonspecific abnormal finding of lung field; I25.10 Atherosclerotic heart disease of native coronary artery without angina pectoris; I25.2 Old myocardial infarction; F17.210 Nicotine dependence, cigarettes, uncomplicated; I73.9 Peripheral vascular disease, unspecified; J44.9 Chronic obstructive pulmonary disease, unspecified; I10 Essential (primary) hypertension; E78.5 Hyperlipidemia, unspecified; Z86.73 Personal history of transient ischemic attack (TIA), and cerebral infarction without residual deficits; Z95.5 Presence of coronary angioplasty implant and graft; Z86.718 Personal history of other venous thrombosis and embolism; Z89.512 Acquired absence of left leg below knee; Z95.1 Presence of aortocoronary bypass graft
CPT/HCPCS: 71010-PO; 71275-PO; 80048-PO; 80076-PO; 81003-PO; 81015-PO; 83690-PO; 84484-PO; 85025-PO; 85378-PO; 97116-GP; 97162-GP; 97166-GO; 97530-GP; 97535-GO; G8978-GP-CL; G8979-GP-CI; G8987-GO-CK; G8988-GO-CJ; J0696; J1335; J1650; Q9967

== ENCOUNTER 2017-08-27 20:35 | Inpatient (IN) | payer OTHER, MEDICAID ==
--- NOTE | 2017-08-27 20:56 | CPEKG ---
Heart Rate: 78 RR Interval: 769 P-R Interval: 128 QRSD Interval: 82 QT Interval: 412 QTC Interval: 470 P [place]: 75 QRS [place]: 73 T Wave [place]: 215 EKG Severity - ABNORMAL ECG - EKG Impression: SINUS RHYTHM EKG Impression: PROBABLE INFERIOR INFARCT, AGE INDETERMINATE EKG Impression: ABNORMAL T, PROBABLE ISCHEMIA, ANT-LAT LEADS Electronically Signed By: Karlee Wood 27-Aug-2017 22:49:11
--- NOTE | 2017-08-27 21:09 | EDPHY ---
H & P Time Seen by Provider: 08/27/17 20:59 HPI/ROS: CHIEF COMPLAINT: Shortness of breath HISTORY OF PRESENT ILLNESS: The patient is a 67-year-old male with the extensive cardiac history and lung cancer who presents to the emergency department with increasing shortness of breath. He states his shortness of breath has been increasing over the past few days. He has been producing sputum but swallows it. He denies fevers or chills. Patient had a brief episode of chest pain on the way in but no persistent chest pain. Has no chest pain currently. Denies nausea or vomiting. REVIEW OF SYSTEMS: My complete review of systems is negative except as mentioned in the HPI. Past Medical/Surgical History: Includes reported lung CA, coronary artery disease, hypertension, DVT, CVA, anemia, encephalopathy, UTI Past surgical history: Includes CABG, L BKA Social history: The patient recently stop smoking Smoking Status: Heavy smoker Physical Exam: Vitals noted. 118/74, 85, 20, 87% on room air GENERAL: Well-appearing, in no acute distress, alert. HEENT: Eyes normal to inspection, normal pharynx, no signs of dehydration. NECK: No thyromegaly, no lymphadenopathy, supple. RESPIRATORY: Decreased breath sounds bilaterally. Left greater than right. No rales or rhonchi. CVS: Regular rate and rhythm, no rubs, murmurs, or gallops. ABDOMEN: Soft, nontender, nondistended, no organomegaly. BACK: Normal to inspection, no CVA tenderness. SKIN: Normal color, no rash, warm, dry. No pallor. EXTREMITIES: Left BKA. No pedal edema, no calf tenderness, no Homans sign or cords, no joint swelling. NEURO/PSYCH: Alert and oriented, normal mood and affect, normal motor sensory exam. Constitutional: Initial Vital Signs Heart Rate 85 08/27/17 20:41 Respiratory Rate 20 08/27/17 20:41 Blood Pressure 118/74 08/27/17 20:41 O2 Sat (%) 87 L 08/27/17 20:41 O2 Delivery Mode Room Air Allergies/Adverse Reactions: diazepam [From Valium] Allergy (Intermediate, Verified 05/19/17 17:15) becomes violent midazolam HCl [From Versed] Allergy (Intermediate, Verified 05/19/17 17:15) becomes violent Home Medications: Medication Instructions Recorded Atorvastatin Calcium [Lipitor 40 40 mg PO DAILY 09/08/16 mg (*)] Citalopram [CeleXA 20 MG] 20 mg PO DAILY 09/08/16 Gabapentin [Neurontin 400 MG (*)] 800 mg PO HS 09/08/16 levETIRAcetam [Keppra] 750 mg PO BID 09/08/16 Aspirin EC [Aspirin EC 325 mg (*)] 325 mg PO DAILY #0 tab 09/18/16 Metoprolol Tartrate [Lopressor 25 25 mg PO BID #60 tab 09/18/16 mg (*)] Clopidogrel Bisulfate [Plavix (*)] 75 mg PO DAILY 03/23/17 Furosemide [Lasix 20 MG (*)] 20 mg PO DAILY 05/19/17 Aspirin 08/27/17 Medical Decision Making ED Course/Re-evaluation: In the emergency department I discussed possible etiologies with the patient. I answered all her questions. An IV was placed. Laboratory studies, EKG and chest x-ray were obtained. Sinus rhythm at 78. Normal axis. Q-wave in II, III, avF. Flipped T-waves V1 through V6. ST depression V 3 through V6. I compared this with a previous EKG from May 2017. The Q-waves were present previously. However the T-waves and depression are new. Patient's CBC is unremarkable. His white count is normal. The patient has a mildly elevated troponin. His BNP is mildly elevated. Chest x-ray: Please refer the dictated report. The patient has an effusion on the right side. I attempted seen in old film. There was no recent imaging in our system. I discussed this with the patient's daughter at the bedside. She states he had recently had an effusion drained at [facility]. The patient had improved after having the infusion drained but over the past few days shortness of breath has increased. I discussed the case with the hospitalist service, Dr. Almaguer. He accepted the patient. I discussed case with Dr. Elizabeth from Oncology. He will consult. I discussed the case with I rechecked the patient on numerous occasions while here. He continued mild shortness of breath was not significantly hypoxic on oxygen Differential Diagnosis: My differential includes but is not limited to ACS, acute VA, pneumonia, empyema , pulmonary embolus, bacteremia, sepsis Critical Care Time: The patient required 35 minutes of critical care time. This was exclusive of any on unbundled procedure. This was due the patient's hypoxia on arrival, a fusion in abnormal chest x-ray, multiple conversations with the patient's family , consultation with Oncology, cardiology, internal medicine, and frequent rechecks. - Data Points Laboratory Results: Laboratory Results 08/27/17 20:55 08/27/17 20:55 08/27/17 08/27/17 08/27/17 Unknown 20:55 20:55 WBC RBC Hgb Hct MCV MCH MCHC RDW Plt Count MPV Neut % (Auto) Lymph % (Auto) Gove % (Auto) Eos % (Auto) Baso % (Auto) Nucleat RBC Rel Count Absolute Neuts (auto) Absolute Lymphs (auto) Absolute Monos (auto) Absolute Eos (auto) Absolute Basos (auto) Absolute Nucleated RBC Immature Gran % Immature Gran # PT 13.1 SEC SEC (12.0-15.0) INR 1.00 (0.83-1.16) APTT 29.2 SEC SEC (23.0-38.0) VBG Lactic Acid 0.9 mmol/L mmol/L (0.7-2.1) Sodium 135 mEq/L mEq/L (134-144) Potassium 3.7 mEq/L mEq/L (3.5-5.2) Chloride 101 mEq/L mEq/L (97-110) Carbon Dioxide 24 mEq/l mEq/l (22-31) Anion Gap 10 mEq/L mEq/L (8-16) BUN 16 mg/dL mg/dL (7-23) Creatinine 0.9 mg/dL mg/dL (0.7-1.3) Estimated GFR > 60 Glucose 97 mg/dL mg/dL (70-100) Calcium 8.8 mg/dL mg/dL (8.5-10.4) Troponin I 0.074 ng/mL H ng/mL (0.000-0.034) NT-Pro-B Natriuret Pep 3540 pg/mL H pg/mL (0-125) 08/27/17 20:55 WBC 8.38 10^3/uL 10^3/uL (3.80-9.50) RBC 4.45 10^6/uL 10^6/uL (4.40-6.38) Hgb 13.0 g/dL L g/dL (13.7-17.5) Hct 38.6 % L % (40.0-51.0) MCV 86.7 fL fL (81.5-99.8) MCH 29.2 pg pg (27.9-34.1) MCHC 33.7 g/dL g/dL (32.4-36.7) RDW 15.2 % % (11.5-15.2) Plt Count 318 10^3/uL 10^3/uL (150-400) MPV 9.0 fL fL (8.7-11.7) Neut % (Auto) 82.3 % H % (39.3-74.2) Lymph % (Auto) 9.5 % L % (15.0-45.0) Gove % (Auto) 6.1 % % (4.5-13.0) Eos % (Auto) 1.1 % % (0.6-7.6) Baso % (Auto) 0.4 % % (0.3-1.7) Nucleat RBC Rel Count 0.0 % % (0.0-0.2) Absolute Neuts (auto) 6.90 10^3/uL H 10^3/uL (1.70-6.50) Absolute Lymphs (auto) 0.80 10^3/uL L 10^3/uL (1.00-3.00) Absolute Monos (auto) 0.51 10^3/uL 10^3/uL (0.30-0.80) Absolute Eos (auto) 0.09 10^3/uL 10^3/uL (0.03-0.40) Absolute Basos (auto) 0.03 10^3/uL 10^3/uL (0.02-0.10) Absolute Nucleated RBC 0.00 10^3/uL 10^3/uL (0-0.01) Immature Gran % 0.6 % % (0.0-1.1) Immature Gran # 0.05 10^3/uL 10^3/uL (0.00-0.10) PT INR APTT VBG Lactic Acid Sodium Potassium Chloride Carbon Dioxide Anion Gap BUN Creatinine Estimated GFR Glucose Calcium Troponin I NT-Pro-B Natriuret Pep Departure - Departure Disposition: [facility] Acute Clinical Impression: Shortness of breath, Pleural effusion, Elevated troponin, Abnormal EKG Condition: Good Referrals: Eliot Novak DO [Primary Care Provider] - As per Instructions
[2017-08-27 21:19] LABS: % IMMATURE GRANULYOCYTES 0.6 % (0.0-1.1); ABSOLUTE IMMATURE GRANULOCYTES 0.05 10^3/uL (0.00-0.10); ADD DIFF? NO; ADD MORPH? NO; ADD SCAN? NO; ATYPICAL LYMPHOCYTE FLAG 10 (0-99); FRAGMENT RBC FLAG 0 (0-99); HEMATOCRIT 38.6 % (40.0-51.0); LEFT SHIFT FLG 0 (0-99); LIPEMIA HEMOLYSIS FLAG 80 (0-99); MEAN CELL HEMOGLOBIN 29.2 pg (27.9-34.1); MEAN CELL HEMOGLOBIN CONCENTR. 33.7 g/dL (32.4-36.7); MEAN CELL VOLUME 86.7 fL (81.5-99.8); PLATELET CLUMPS FLAG 10 (0-99); PLATELET COUNT 318 10^3/uL (150-400); RED BLOOD CELL COUNT 4.45 10^6/uL (4.40-6.38); RED CELL DISTRIBUTION WIDTH 15.2 % (11.5-15.2)
[2017-08-27 21:23] LABS: ANION GAP 10 mEq/L (8-16); CALCIUM 8.8 mg/dL (8.5-10.4); CARBON DIOXIDE 24 mEq/l (22-31); CHLORIDE 101 mEq/L (97-110); CREATININE 0.9 mg/dL (0.7-1.3); GLOMERULAR FILTRATION RATE > 60; GLUCOSE 97 mg/dL (70-100); POTASSIUM 3.7 mEq/L (3.5-5.2); SODIUM 135 mEq/L (134-144)
[2017-08-27 21:30] LABS: APTT 29.2 SEC (23.0-38.0); PROTIME(PATIENT) 13.1 SEC (12.0-15.0)
[2017-08-27 21:35] LABS: TROPONIN I 0.074 ng/mL (0.000-0.034)
[2017-08-27] MEDS ORDERED: ACETAMINOPHEN 325 MG TAB PO PRN (22:33)
[2017-08-27] MEDS ORDERED: ALBUTEROL 3 ML DEYVIAL IH PRN (22:33)
[2017-08-27] MEDS ORDERED: ONDANSETRON DISINTEGRATING 4 MG TAB PO PRN (22:33)
[2017-08-27] MEDS ORDERED: ONDANSETRON 4 MG/2 ML VIAL IVP PRN (22:33)
[2017-08-28] MEDS ORDERED: GABAPENTIN 300 MG CAP PO PRN (00:43)
[2017-08-28] MEDS ORDERED: levETIRAcetam 250 MG TAB PO ONE (00:43)
--- NOTE | 2017-08-28 00:49 | PDGENHP ---
History and Physical - Chief Complaint Shortness of Breath - History of Present Illness 67 yo M w/ CAD and recent diagnosis of lung cancer presents with shortness of breath. Patient was first noted to have spiculated lung mass during admission here in May. Since, he has been diagnosed with lung cancer and received radiation treatments, per his daughter who is his primary senior strategy manager. He has a very low functional status and requires constant care so he was not deemed a candidate for chemotherapy. He developed a R pleural effusion last week and had it drained on Thursday 08/23 at [facility]. Since he left there he developed progressive SOB and so presented to ED today. He denies chest pain or other symptoms. He is A&Ox3 on my evaluation but rather distant and daughter reports frequent confusion. In the ED imaging showed moderate R pleural effusion. History Information - Allergies/Home Medication List Allergies/Adverse Reactions: diazepam [From Valium] Allergy (Intermediate, Verified 05/19/17 17:15) becomes violent midazolam HCl [From Versed] Allergy (Intermediate, Verified 05/19/17 17:15) becomes violent Home Medications: Atorvastatin Calcium [Lipitor 40 mg (*)] 40 mg PO DAILY 09/08/16 [Last Taken 01/31] Citalopram [CeleXA 20 MG] 20 mg PO DAILY 09/08/16 [Last Taken 05/19/17] Gabapentin [Neurontin 400 MG (*)] 800 mg PO HS 09/08/16 [Last Taken 05/18/17] levETIRAcetam [Keppra] 750 mg PO BID 09/08/16 [Last Taken 05/19/17 1 tab] Clopidogrel Bisulfate [Plavix (*)] 75 mg PO DAILY 03/23/17 [Last Taken 05/19/17] Furosemide [Lasix 20 MG (*)] 20 mg PO DAILY 05/19/17 [Last Taken 05/19/17] Aspirin 08/27/17 [Last Taken Unknown] I have personally reviewed and updated: family history, medical history - Past Medical History coronary artery disease, cancer - Family History Positive for: cancer - Social History Smoking Status: Heavy smoker Review of Systems Review of Systems: ROS: 10pt was reviewed & negative except for what was stated in HPI & below Physical Exam Physical Exam: Temp Pulse Resp BP Pulse Ox 36.7 C 67 20 114/55 L 92 08/28/17 00:00 08/28/17 00:00 08/28/17 00:00 08/28/17 00:00 08/28/17 00:00 O2 (L/minute) 3 Constitutional: chronically ill appearing, uncomfortable Eyes: PERRL, EOMI Ears, Nose, Mouth, Throat: moist mucous membranes, no oral mucosal ulcers Cardiovascular: regular rate and rhythym, other (Distant heart sounds) Respiratory: no respiratory distress, rhonchi (Diffuse) Gastrointestinal: normoactive bowel sounds, soft, non-tender abdomen Skin: warm, normal color Musculoskeletal: other (s/p L BKA) Neurologic: AAOx3, CN II-XII Intact Psychiatric: interacting appropriately, flat affect Lab Data & Imaging Review 08/27/17 20:55 08/27/17 20:55 WBC 8.38 10^3/uL (3.80-9.50) 08/27/17 20:55 RBC 4.45 10^6/uL (4.40-6.38) 08/27/17 20:55 Hgb 13.0 g/dL (13.7-17.5) L 08/27/17 20:55 Hct 38.6 % (40.0-51.0) L 08/27/17 20:55 MCV 86.7 fL (81.5-99.8) 08/27/17 20:55 MCH 29.2 pg (27.9-34.1) 08/27/17 20:55 MCHC 33.7 g/dL (32.4-36.7) 08/27/17 20:55 RDW 15.2 % (11.5-15.2) 08/27/17 20:55 Plt Count 318 10^3/uL (150-400) 08/27/17 20:55 MPV 9.0 fL (8.7-11.7) 08/27/17 20:55 Neut % (Auto) 82.3 % (39.3-74.2) H 08/27/17 20:55 Lymph % (Auto) 9.5 % (15.0-45.0) L 08/27/17 20:55 [place] % (Auto) 6.1 % (4.5-13.0) 08/27/17 20:55 Eos % (Auto) 1.1 % (0.6-7.6) 08/27/17 20:55 Baso % (Auto) 0.4 % (0.3-1.7) 08/27/17 20:55 Nucleat RBC Rel Count 0.0 % (0.0-0.2) 08/27/17 20:55 Absolute Neuts (auto) 6.90 10^3/uL (1.70-6.50) H 08/27/17 20:55 Absolute Lymphs (auto) 0.80 10^3/uL (1.00-3.00) L 08/27/17 20:55 Absolute Monos (auto) 0.51 10^3/uL (0.30-0.80) 08/27/17 20:55 Absolute Eos (auto) 0.09 10^3/uL (0.03-0.40) 08/27/17 20:55 Absolute Basos (auto) 0.03 10^3/uL (0.02-0.10) 08/27/17 20:55 Absolute Nucleated RBC 0.00 10^3/uL (0-0.01) 08/27/17 20:55 Immature Gran % 0.6 % (0.0-1.1) 08/27/17 20:55 Immature Gran # 0.05 10^3/uL (0.00-0.10) 08/27/17 20:55 PT 13.1 SEC (12.0-15.0) 08/27/17 20:55 INR 1.00 (0.83-1.16) 08/27/17 20:55 APTT 29.2 SEC (23.0-38.0) 08/27/17 20:55 VBG Lactic Acid 0.9 mmol/L (0.7-2.1) 08/27/17 Unknown Sodium 135 mEq/L (134-144) 08/27/17 20:55 Potassium 3.7 mEq/L (3.5-5.2) 08/27/17 20:55 Chloride 101 mEq/L (97-110) 08/27/17 20:55 Carbon Dioxide 24 mEq/l (22-31) 08/27/17 20:55 Anion Gap 10 mEq/L (8-16) 08/27/17 20:55 BUN 16 mg/dL (7-23) 08/27/17 20:55 Creatinine 0.9 mg/dL (0.7-1.3) 08/27/17 20:55 Estimated GFR > 60 08/27/17 20:55 Glucose 97 mg/dL (70-100) 08/27/17 20:55 Calcium 8.8 mg/dL (8.5-10.4) 08/27/17 20:55 Troponin I 0.074 ng/mL (0.000-0.034) H 08/27/17 20:55 NT-Pro-B Natriuret Pep 3540 pg/mL (0-125) H 08/27/17 20:55 Imaging Review: CXR with moderate R pleural effusion Visualized and Interpreted EKG results: Yes EKG Interpretation: Positive for: normal sinsus rhythm, other (TWI, ST depressions anterolateral leads) Assessment & Plan Assessment: 67 yo M w/ CAD and lung CA presents w/ SOB likely 2/2 pleural effusion and found to have abnormal troponin and ECG. Plan: 1. R pleural effusion - Seems to have reaccumulated after recent drainage and likely the source of patient's shortness of breath. It seems most likely this represents a malignant effusion noting recently diagnosed malignancy. - Will order IR thoracentesis for symptom improvement 2. Elevated troponin - .07 on admission with ischemic changes on ECG. Patient has known, extensive CAD and has been deemed a poor candidate for revascularization in the past. I suspect current abnormaliteis are due to demand ischemia in the setting of respiratory distress. - Will trend enzymes, monitor on telemetry 3. Lung cancer - Recently diagnosed and treated with radiation. Patient a poor candidate for chemotherapy due to functional status. Patient and family would benefit form palliative care involvement but daughter is not interested in this at this time. 4. CAD - On DAPT, statin, and BB as outpatient. Meds need to be reconciled. 5. GOC - Discussed this at length with patient's daughter. She is currently awaiting further work-up (PET scan, MRI brain) to determine extent of disease. She seems torn between pursuing all available measures and aiming simply for quality of life. It seems patient has very low functional status currently. She was not interested in palliative care consultation during this hospitalization, although it may be worthwhile readdressing this prior to discharge. Diet - NPO for thoracentesis Code - Full per discussion with patient and family Ppx - SCDs Dispo - Admit to observation status
[2017-08-28 04:22] LABS: % IMMATURE GRANULYOCYTES 0.8 % (0.0-1.1); ABSOLUTE IMMATURE GRANULOCYTES 0.05 10^3/uL (0.00-0.10); ADD DIFF? NO; ADD MORPH? NO; ADD SCAN? NO; ATYPICAL LYMPHOCYTE FLAG 0 (0-99); FRAGMENT RBC FLAG 0 (0-99); HEMATOCRIT 35.7 % (40.0-51.0); HEMOGLOBIN 11.8 g/dL (13.7-17.5); LEFT SHIFT FLG 0 (0-99); LIPEMIA HEMOLYSIS FLAG 80 (0-99); MEAN CELL HEMOGLOBIN 28.7 pg (27.9-34.1); MEAN CELL HEMOGLOBIN CONCENTR. 33.1 g/dL (32.4-36.7); MEAN CELL VOLUME 86.9 fL (81.5-99.8); MEAN PLATELET VOLUME 9.3 fL (8.7-11.7); PLATELET CLUMPS FLAG 0 (0-99); PLATELET COUNT 276 10^3/uL (150-400); RED BLOOD CELL COUNT 4.11 10^6/uL (4.40-6.38); RED CELL DISTRIBUTION WIDTH 15.1 % (11.5-15.2)
[2017-08-28 04:31] LABS: ANION GAP 8 mEq/L (8-16); CALCIUM 8.8 mg/dL (8.5-10.4); CARBON DIOXIDE 27 mEq/l (22-31); CHLORIDE 103 mEq/L (97-110); CREATININE 0.8 mg/dL (0.7-1.3); GLOMERULAR FILTRATION RATE > 60; GLUCOSE 127 mg/dL (70-100); INR 1.04 (0.83-1.16); LACTATE DEHYDROGENASE 492 IU/L (313-618); MAGNESIUM 2.2 mg/dL (1.6-2.3); POTASSIUM 3.6 mEq/L (3.5-5.2); PROTIME(PATIENT) 13.5 SEC (12.0-15.0); SODIUM 138 mEq/L (134-144)
[2017-08-28 04:32] LABS: APTT 29.8 SEC (23.0-38.0)
[2017-08-28 04:41] LABS: TROPONIN I 0.067 ng/mL (0.000-0.034)
--- NOTE | 2017-08-28 09:11 | GCON ---
[f rep st] CONSULTATION HEM/ONC CONSULT REASON FOR CONSULTATION: Presumed recurrent non-small cell lung cancer. HISTORY OF PRESENT ILLNESS: The patient is a 67-year-old gentleman who apparently has been chronical ly ill and I received most of his history today from his daughter. Daughter I tried to reach on the phone but did not answer and the voice mailbox was full. In any event, the patient is readmitted wit h a recurrent right pleural effusion. The patient was just discharged from [facility] for the same problem. My recommendation is to put a PleurX catheter in the patient so that this pleu ral effusion can be drained more readily at home. EXECUTIVE SUMMARY: The patient is an unfortunate and very ill, 67-year-old gentleman who had a right upper lobe pulmonary presumed primary but was felt to be too ill because of his cardiovascular disea se for a needle biopsy because of the risk of pneumothorax. He has a history of a [id number] amp utation on the right and a stroke. He has a left-sided hemiparesis, and he has extensive cardiovascu lar disease. The patient had a PET scan that showed a spiculated, pleural-based lesion in the right upper lobe about 2.6 x 15 mm when he was initially diagnosed on May 30, 2017. The patient had some fractures in his ribs without metastases, and he was treated with SRS and was not felt to be a good c andidate for a biopsy because of the risk of pneumothorax. He had SRS at [facility] and toler ed that pretty well, but he has been back into the hospital at [facility] with a compla int of a recurrent right pleural effusion. The effusion was tapped. The patient was readmitted to the hospital in [place] and the pleural effusion that was remarkable, I am not able to find the pleural effusion cytology. The pleural fluid cytology was negative, but it was a pleural exudate. The fluid had a protein of 4.6. It is most likely a progressive metastatic disease. The CEA was 4600. He also is incompetent to make decisions and so his daughter makes decis ions. I spoke to her today about getting a PleurX catheter so he can be managed more readily at home . If he will get a brain scan and if he has brain metastases, then will definitely go to hospice. D r. Andorsky ordered a PET scan. I think he was thinking that if there are additional places we could get a biopsy because he has not had a tissue diagnosis. Then he might be a candidate for a targeted agent or a PD L1 inhibitor. 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 FAMILY HISTORY: Remarkable in that his brother and his sister both had colon cancer in their 50s. HABITS: Reveal that he smokes cigarettes a pack a day for many decades. The patient's performance status is about 60. REVIEW OF SYSTEMS: Reveals he is not in severe pain right now. CLINICAL EXAM: GENERAL APPEARANCE: Reveals a patient with left hemiparesis and below-knee amputatio n. LUNGS: He has dullness to percussion with decreased breath sounds in the right side. CV: Regul ar. ABDOMEN: Free of hepatosplenomegaly. CLINICAL IMPRESSION: Progressive pleural-based metastases. Cytology not positive but pleural exudat e with abnormal with poor performance status. His daughter wants to see what the MRI shows and will put a PleurX catheter in today. If he has obvious brain metastases, she would rather have him go str aight to hospice. /[id number]/MODL
[2017-08-28] MEDS ORDERED: GADOBUTROL 10 ML VIAL IVP ONE (11:04)
--- NOTE | 2017-08-28 12:00 | PDCARCONS ---
Cardiology Consult Reason for Consult: Shortness of breath Chief Complaint: Short of breath Requesting Physician: Tim History of Present Illness: 67-year-old male with metastatic lung cancer admitted with shortness of breath. Patient is significantly impaired with underlying dimension unable to give a clear history other than he has some shortness of breath and maybe an episode of chest tightness. When I came to see him he was sleeping flat in bed comfortable. Patient has severe coronary disease with a history of ischemic cardiomyopathy. Ejection fraction is noted to be 40-45%. He had severe multivessel high risk PCI by Dr. Lundberg with Impella guidance receiving left main LAD circumflex and right coronary artery stents. He has a history of at least severe mitral regurgitation. He has had no recurrent cardiac events. He has a history of SVT on amiodarone, history of severe peripheral vascular disease with a fem-pop bypass and a left BKA, history of COPD with ongoing tobacco abuse, history of CVA with left carisa paresis complicated by a seizure disorder. He is cared for on the outpatient side by Dr. Lance Winchester. History Information - Allergies/Home Medication List Allergies/Adverse Reactions: diazepam [From Valium] Allergy (Intermediate, Verified 05/19/17 17:15) becomes violent midazolam HCl [From Versed] Allergy (Intermediate, Verified 05/19/17 17:15) becomes violent Home Medications: Atorvastatin Calcium [Lipitor 40 mg (*)] 40 mg PO DAILY 09/08/16 [Last Taken 10/03] Citalopram [CeleXA 20 MG] 20 mg PO DAILY 09/08/16 [Last Taken 08/27/17] Gabapentin [Neurontin 400 MG (*)] 800 mg PO BID 09/08/16 [Last Taken 08/27/17 09 :00] levETIRAcetam [Keppra] 750 mg PO BID 09/08/16 [Last Taken 08/27/17 09:00] Clopidogrel Bisulfate [Plavix (*)] 75 mg PO DAILY 03/23/17 [Last Taken 08/27/17] Furosemide [Lasix 20 MG (*)] 20 mg PO DAILY 05/19/17 [Last Taken 08/27/17] AZITHROMYCIN [Z-PACK] 250 mg PO DAILY 08/28/17 [Last Taken 08/27/17 500mg] Albuterol [Proventil Inhaler HFA (*)] 1 - 2 puffs IH DAILY PRN 08/28/17 [Last Taken Unknown] Past Medical History: - Social History Smoking Status: Heavy smoker Physical Exam Physical Exam: Temp Pulse Resp BP Pulse Ox 36.5 C 80 18 127/67 H 83 L 08/28/17 11:49 08/28/17 11:49 08/28/17 11:49 08/28/17 11:49 08/28/17 11:49 O2 (L/minute) 2 Constitutional: not in pain, chronically ill appearing Cardiovascular: regular rate and rhythym, systolic murmur, No JVD Respiratory: reduced air movement, expiratory wheeze, inspiratory crackles, dullness to percussion, rhonchi Gastrointestinal: normoactive bowel sounds, soft, non-tender abdomen Skin: warm Lab and Imaging 08/28/17 03:50 08/28/17 03:50 WBC 6.57 10^3/uL (3.80-9.50) 08/28/17 03:50 RBC 4.11 10^6/uL (4.40-6.38) L 08/28/17 03:50 Hgb 11.8 g/dL (13.7-17.5) L 08/28/17 03:50 Hct 35.7 % (40.0-51.0) L 08/28/17 03:50 MCV 86.9 fL (81.5-99.8) 08/28/17 03:50 MCH 28.7 pg (27.9-34.1) 08/28/17 03:50 MCHC 33.1 g/dL (32.4-36.7) 08/28/17 03:50 RDW 15.1 % (11.5-15.2) 08/28/17 03:50 Plt Count 276 10^3/uL (150-400) 08/28/17 03:50 MPV 9.3 fL (8.7-11.7) 08/28/17 03:50 Neut % (Auto) 75.1 % (39.3-74.2) H 08/28/17 03:50 Lymph % (Auto) 13.4 % (15.0-45.0) L 08/28/17 03:50 [place] % (Auto) 7.9 % (4.5-13.0) 08/28/17 03:50 Eos % (Auto) 2.3 % (0.6-7.6) 08/28/17 03:50 Baso % (Auto) 0.5 % (0.3-1.7) 08/28/17 03:50 Nucleat RBC Rel Count 0.0 % (0.0-0.2) 08/28/17 03:50 Absolute Neuts (auto) 4.94 10^3/uL (1.70-6.50) 08/28/17 03:50 Absolute Lymphs (auto) 0.88 10^3/uL (1.00-3.00) L 08/28/17 03:50 Absolute Monos (auto) 0.52 10^3/uL (0.30-0.80) 08/28/17 03:50 Absolute Eos (auto) 0.15 10^3/uL (0.03-0.40) 08/28/17 03:50 Absolute Basos (auto) 0.03 10^3/uL (0.02-0.10) 08/28/17 03:50 Absolute Nucleated RBC 0.00 10^3/uL (0-0.01) 08/28/17 03:50 Immature Gran % 0.8 % (0.0-1.1) 08/28/17 03:50 Immature Gran # 0.05 10^3/uL (0.00-0.10) 08/28/17 03:50 PT 13.5 SEC (12.0-15.0) 08/28/17 03:50 INR 1.04 (0.83-1.16) 08/28/17 03:50 APTT 29.8 SEC (23.0-38.0) 08/28/17 03:50 VBG Lactic Acid 0.9 mmol/L (0.7-2.1) 08/27/17 Unknown Sodium 138 mEq/L (134-144) 08/28/17 03:50 Potassium 3.6 mEq/L (3.5-5.2) 08/28/17 03:50 Chloride 103 mEq/L (97-110) 08/28/17 03:50 Carbon Dioxide 27 mEq/l (22-31) 08/28/17 03:50 Anion Gap 8 mEq/L (8-16) 08/28/17 03:50 BUN 16 mg/dL (7-23) 08/28/17 03:50 Creatinine 0.8 mg/dL (0.7-1.3) 08/28/17 03:50 Estimated GFR > 60 08/28/17 03:50 Glucose 127 mg/dL (70-100) H 08/28/17 03:50 Calcium 8.8 mg/dL (8.5-10.4) 08/28/17 03:50 Magnesium 2.2 mg/dL (1.6-2.3) 08/28/17 03:50 Lactate Dehydrogenase 492 IU/L (313-618) 08/28/17 03:50 Troponin I 0.067 ng/mL (0.000-0.034) H 08/28/17 03:50 NT-Pro-B Natriuret Pep 3540 pg/mL (0-125) H 08/27/17 20:55 Laboratory Tests 08/27/17 08/28/17 20:55 03:50 Troponin I 0.074 H 0.067 H NT-Pro-B Natriuret Pep 3540 H EKG additional interpertation: EKG today shows sinus rhythm with deep anterior T -wave inversions new from previous EKG. A/P Assessment: Impression: 67-year-old male with metastatic lung cancer, severe coronary artery disease, COPD, valvular heart disease with moderate to severe MR admitted with progressive shortness of breath. He is clearly chronically ill with poor performance status. He is unable to give informed consent and really unable to give a history. His EKG does suggest anterior ischemia. Troponins do not suggest acute injury with very low flat troponins. He is a poor candidate for any further interventional options based on my review of his previous angiograms in his current performance status. Recommendations are for medical management with aspirin, statin, beta-sintia. There is no evidence of congestive heart failure as he is comfortable laying flat. I could not appreciate any JVP. There are no good cardiac options at this point for the patient other than medical therapy. Review of Systems Review of Systems: - Review of Systems Constitutional: no symptoms reported EENTM: no symptoms reported Respiratory: shortness of breath Cardiac: chest pain Gastrointestinal/Abdominal: no symptoms reported Genitourinary: no symptoms Musculoskelatal: no symptoms Past Medical History PMH: - Personal History Current Tetanus/Diphtheria Vaccine: Yes - Medical/Surgical History Hx Asthma: Yes Hx Chronic Respiratory Disease: No Hx Cardiac Disease: Yes Hx Diabetes: No Hx Renal Disease: No Hx Alcoholism: Yes Hx Cirrhosis: No Hx HIV/AIDS: No Hx Splenectomy or Spleen Trauma: No Other PMH: DVT left leg, has new blockages. 3 CO, htn. DVT, PAD, CAD, CVA L side defecits, CABG, L BKA, Lung cancer, - Social History Smoking Status: Heavy smoker Additional Social History:
[2017-08-28] MEDS ORDERED: ALBUTEROL 200 PUFFS/18 GM MDI IH PRN (12:22)
[2017-08-28] MEDS ORDERED: NALOXONE HCL 0.4 MG/ML INJ ONE (12:56)
[2017-08-28] MEDS ORDERED: fentaNYL 100 MCG/2 ML INJ ONE (12:56)
--- NOTE | 2017-08-28 14:22 | HOSPPROG ---
Hospitalist Progress Note Assessment/Plan: Assessment: 67 yo M p/w acute shortness of breath in setting of recurrent malignant pleural effusion and lung cancer Plan: # Malignant effusion. Acute, recurrent, right side, symptomatic - s/p recent thora at [facility] - agree w/ palliative pleurex for home mgmt - currently awaiting IR placement, post-procedure pain mgmt, gauge effect # Lung cancer. Appreciate oncology consultation, agree that patient's performance status is low and he is unlikely to benefit from aggressive mgmt - recommend a palliative approach and ongoing conversations regarding hospice care w/ daughter at [facility] - counseled patient/daughter that MRI w/o brain mets, will likely require significant care at home, currently lives w/ daughter # Chronic hypoxic respiratory failure. Cont supp o2 # CAD. Dynamic EKG changes (TWI I, V2-V6 are new w/ STD inferior leads, personally interpreted) w/ marginally elevated trop - appreciate Cards consultation, agree with no further risk strat given his poor functional status - cont ASA/Plavix/statin/bblocker, holding meds prior to procedure # Neuropathy. Chronic, cont gabapentin # Atelectasis. Acute, 2/2 effusion, drain Diet. NPO, then regular Ppx. High risk, lovenox 40 Code. Full at present Dispo. Upgrade to inpatient admission status re: anticipated LOS > 48hrs for reasonable medical necessity including acute recurrent malignant pleural effusion in setting of lung cancer requiring surgical procedure, reassessment for re-accumulation, pain mgmt. Subjective: counseled daughter regarding advanced disease process, patient w/ pain and attempting to get comfortable Objective: Vital Signs Temp Pulse Resp BP Pulse Ox 36.5 C 80 18 127/67 H 83 L 08/28/17 11:49 08/28/17 11:49 08/28/17 11:49 08/28/17 11:49 08/28/17 11:49 Laboratory Results 08/28/17 03:50 08/28/17 03:50 08/27/17 08/28/17 08/29/17 05:59 05:59 05:59 Output Total 150 Balance -150 PT 13.5 SEC (12.0-15.0) 08/28/17 03:50 INR 1.04 (0.83-1.16) 08/28/17 03:50 - Time Spent With Patient Time Spent with Patient: greater than 35 minutes Time Spent with Patient: Greater than 35 minutes spent on this patients care, greater than 50% of time spent counseling, educating, and coordinating care regarding the above mentioned plan. - Physical Exam Constitutional: chronically ill appearing, uncomfortable, cachectic Respiratory: other (reduced air movement in R w/ insp crackles), No respiratory distress Psychiatric: not anxious, flat affect, No agitated ICD10 Worksheet Patient Problems: Problems Problem Status Onset Abnormal EKG Acute Elevated troponin Acute Pleural effusion Acute Shortness of breath Acute Chronic Disease Mgmt/Transitional Care Acute Abdominal pain Acute Anemia Acute Atrial fibrillation Acute Cardiac ischemia Acute Chest pain Acute Chest pain Acute DVT (deep venous thrombosis) Acute ESBL (extended spectrum beta-lactamase) producing bacteria infection Acute ~ Elevated INR Acute Elevated troponin I level Acute GI hemorrhage Acute Urinary incontinence Acute
--- NOTE | 2017-08-28 15:17 | ASMTCASEMG ---
Living Arrangements What is your living Answers: With Child(sandra) arrangement? Who do you live with? Type Of Residence What kind of residence do Answers: House you live in? Discharge Plan Comments Coordination Status Comments Notes: Chart reviewed and spoke w/ MON[place]NA Acosta. Pt is a 67 y/o man admitted w/ pleural effusion and elevated trop. Pt had an MRI today. Pt is getting a CATH put in. CM met w/ Jacqui, daughter who is MDPOA. She is requesting for HC with [facility] and requested February. OT/PT are ordered and awaiting recommendations. [facility] has been notified to start services when pt is medically stable to d/c. CM spoke w/ Jayla, a nurse care manager and provided her updates. CM to follow. Date Signed: 08/28/2017 03:17 PM Electronically Signed By:JENNIFER Perez
[2017-08-28] MEDS ORDERED: LIDOCAINE 1% 300 MG/30 ML SDV ONE (15:30)
[2017-08-28] MEDS: NICOTINE 14 MG/24 HR PATCH TD SCH (16:21)
[2017-08-28] MEDS: levETIRAcetam 500 MG TAB PO SCH ×2 (16:22→21:05)
[2017-08-28] MEDS: ATORVASTATIN CALCIUM 40 MG TAB PO SCH (16:22)
[2017-08-28] MEDS: GABAPENTIN 400 MG CAP PO SCH ×2 (16:22→21:05)
[2017-08-28] MEDS: METOPROLOL TARTRATE 25 MG TAB PO SCH ×2 (16:22→21:06)
[2017-08-28] MEDS: CITALOPRAM 20 MG TAB PO SCH (16:28)
[2017-08-28] MEDS: AZITHROMYCIN 250 MG TAB PO SCH (16:28)
[2017-08-28] MEDS: FUROSEMIDE 20 MG TAB PO SCH (16:42)
[2017-08-28 16:55] LABS: LD, PLEURAL FLUID 3766 IU/L
[2017-08-28 17:28] LABS: COLOR YELLOW; LEUKOCYTE ESTERASE,URINE 3+ (NEGATIVE); NITRITE,URINE POSITIVE (NEGATIVE)
[2017-08-28 17:30] LABS: BACTERIA 2+ /hpf (NONE SEEN); MUCUS 2+ /lpf (NONE-1+); WBC,URINE 50-182 /hpf (0-3)
[2017-08-28] MEDS: oxyCODONE IR 5 MG TAB PO PRN (21:38)
[2017-08-28 23:25] VITALS: RESP 18
[2017-08-29] MEDS: oxyCODONE IR 5 MG TAB PO PRN (00:51)
[2017-08-29 04:50] LABS: % IMMATURE GRANULYOCYTES 0.6 % (0.0-1.1); ABSOLUTE IMMATURE GRANULOCYTES 0.05 10^3/uL (0.00-0.10); ADD DIFF? NO; ADD MORPH? NO; ADD SCAN? NO; ATYPICAL LYMPHOCYTE FLAG 10 (0-99); FRAGMENT RBC FLAG 0 (0-99); HEMOGLOBIN 11.7 g/dL (13.7-17.5); LEFT SHIFT FLG 0 (0-99); LIPEMIA HEMOLYSIS FLAG 80 (0-99); MEAN CELL HEMOGLOBIN 28.7 pg (27.9-34.1); MEAN CELL HEMOGLOBIN CONCENTR. 32.5 g/dL (32.4-36.7); MEAN CELL VOLUME 88.2 fL (81.5-99.8); MEAN PLATELET VOLUME 9.2 fL (8.7-11.7); PLATELET CLUMPS FLAG 0 (0-99); PLATELET COUNT 289 10^3/uL (150-400); RED BLOOD CELL COUNT 4.08 10^6/uL (4.40-6.38); RED CELL DISTRIBUTION WIDTH 15.3 % (11.5-15.2)
[2017-08-29 05:34] LABS: ANION GAP 9 mEq/L (8-16); CALCIUM 8.6 mg/dL (8.5-10.4); CARBON DIOXIDE 28 mEq/l (22-31); CHLORIDE 102 mEq/L (97-110); CREATININE 0.9 mg/dL (0.7-1.3); GLOMERULAR FILTRATION RATE > 60; GLUCOSE 105 mg/dL (70-100); POTASSIUM 4.7 mEq/L (3.5-5.2); SODIUM 139 mEq/L (134-144)
--- NOTE | 2017-08-29 07:53 | SOAPPROG ---
SOAP Progress Note Assessment/Plan: Assessment: 1. Presumed RUL lung cancer: Dr. Zamorano wants to see if he has a druggable mutation before closing all therapeutic option. Therefore he has ordered a PET as an OP to look for biopsiable tissue. 2. Recurrent Right pleural effusion: he has a catheter in place now and can be drained at [facility] with proper training of his family. Plan: Discharge and follow up Dr. Zamorano 08/29/17 07:53 08/29/17 07:54 Subjective: Julito is a 67 yo with hx of stroke and CAD with presumed progressive RUL NSCLC. He had a pleural catheter placed yesterday. He is stable for discharge. He feel pretty well this morning. Objective: Vital Signs Temp Pulse Resp BP Pulse Ox 36.6 C 89 18 133/69 H 96 08/29/17 04:00 08/29/17 04:00 08/29/17 04:00 08/29/17 04:00 08/29/17 04:00 Microbiology 08/28/17 15:00 Gram Stain - Final Pleural Fluid - Aspirate Laboratory Results 08/29/17 03:56 08/29/17 03:56 08/28/17 08/29/17 08/30/17 05:59 05:59 05:59 Intake Total 860 Output Total 1250 Balance -390 PT 13.5 SEC (12.0-15.0) 08/28/17 03:50 INR 1.04 (0.83-1.16) 08/28/17 03:50 Catheter tunneled on right anterior chest.Lung clear. ICD10 Worksheet Patient Problems: Problems Problem Status Onset Abnormal EKG Acute Elevated troponin Acute Pleural effusion Acute Shortness of breath Acute Chronic Disease [facility]/Transitional Care Acute Abdominal pain Acute Anemia Acute Atrial fibrillation Acute Cardiac ischemia Acute Chest pain Acute Chest pain Acute DVT (deep venous thrombosis) Acute ESBL (extended spectrum beta-lactamase) producing bacteria infection Acute ~ Elevated INR Acute Elevated troponin I level Acute GI hemorrhage Acute Urinary incontinence Acute
[2017-08-29 08:22] VITALS: BP 112/46; PULSE 78; TEMP 98.1; O2SAT 95
[2017-08-29] MEDS: levETIRAcetam 500 MG TAB PO SCH (08:34)
[2017-08-29] MEDS: CITALOPRAM 20 MG TAB PO SCH (08:34)
[2017-08-29] MEDS: NICOTINE 14 MG/24 HR PATCH TD SCH (08:34)
[2017-08-29] MEDS: GABAPENTIN 400 MG CAP PO SCH (08:34)
[2017-08-29] MEDS: ATORVASTATIN CALCIUM 40 MG TAB PO SCH (08:35)
[2017-08-29] MEDS: METOPROLOL TARTRATE 25 MG TAB PO SCH (08:35)
[2017-08-29] MEDS: FUROSEMIDE 20 MG TAB PO SCH (08:35)
[2017-08-29] MEDS: AZITHROMYCIN 250 MG TAB PO SCH (08:35)
[2017-08-29] MEDS ORDERED: ERTAPENEM 1 GM in NS 100 ML IV SCH (09:00)
--- NOTE | 2017-08-29 10:34 | PDDCSUM ---
Discharge Summary Discharge Summary: DISCHARGE SUMMARY FOLLOW-UP ITEMS: 1. Resume outpatient goals of care conversations with the patient and his daughter at [facility] 2. Follow up urine culture results DATE OF ADMISSION: 08/27/2017 DATE OF DISCHARGE: 08/29/2017 DISCHARGE DIAGNOSES: 1. Acute malignant effusion 2. Lung cancer 3. Chronic hypoxic respiratory failure 4. Chronic coronary artery disease with supply demand mismatch 5. Chronic neuropathy 6. Acute atelectasis 7. Acute urinary tract infection, complicated CONSULTATIONS: Oncology, Cardiology PROCEDURES / IMAGING: PleurX catheter inserted by Interventional Radiology CHIEF COMPLAINT: Acute shortness of breath SUBJECTIVE: Patient is feeling better at time of discharge, pain is well managed PHYSICAL EXAM ON DISCHARGE: Systolic blood pressure is 110, heart rate 90, satting well on 4 L nasal cannula , reduced air movement in the right base, with some faint inspiratory crackles superior to that, good aeration in the left base, heart rhythm is regular, bowel sounds are present, patient is alert awake oriented x3, his pain level is 0/10 LABS ON DISCHARGE: Urine culture pending, urinalysis positive HOSPITAL COURSE BY PROBLEM: The patient presented with acute recurrent malignant effusion on the right side which was symptomatic and causing him significant shortness of breath. This malignant effusion is recurring in the setting of lung cancer, and the patient' s performance status is low and he is unlikely to benefit from any aggressive chemotherapy management. Consequently, a palliative PleurX catheter was recommended by Oncology, and the patient successfully had this procedure performed. Will have home nursing care assist with drainage, and will continue on his home supplemental oxygen as well as incentive spirometer for atelectasis in the affected area. The patient's dual anti-platelet medications were held during his hospitalizations so that safe drain placement could be performed, and these will be re-initiated at time of discharge. He was seen in consultation by Cardiology given marginal elevation of his troponin level secondary to supply demand mismatch in the setting of known coronary disease and recurrent pleural effusion. Dr. Robel Davis did not believe that further cardiac risk stratification was indicated given patient's poor functional status at baseline, and he recommended continuing medical management with aspirin, Plavix, statin, beta-sintia. The patient did experience some urinary tract symptoms and had a positive urinalysis. 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 If it is determined through his urine culture results that the patient is cephalosporins resistant, I recommend that his primary care provider as well as primary oncologist a contact the patient and dose appropriate antibiotics at that time. DISCHARGE MEDICATIONS: Please see official discharge medication reconciliation sheet in chart , as needed oxycodone, scheduled Senokot S, cefpodoxime 200 mg twice daily x7 days, continue all other home medications. DISCHARGE INSTRUCTIONS: Please follow up with Dr. Zamorano in the short term, Dr. Eliot Novak if needed. TIME SPENT: Greater than 30 minutes were spent on direct patient care, as well as discharge planning and preparation.
--- NOTE | 2017-08-29 10:36 | PDIAF ---
- Diagnosis Diagnosis: Lung cancer, malignant effusion, UTI Code Status: Full Code - Medication Management Discharge Medications: Medications to Continue on Transfer Atorvastatin Calcium [Lipitor 40 mg (*)] 40 mg PO DAILY 09/08/16 [Last Taken 10/03] Citalopram [CeleXA 20 MG] 20 mg PO DAILY 09/08/16 [Last Taken 08/27/17] Gabapentin [Neurontin 400 MG (*)] 800 mg PO BID 09/08/16 [Last Taken 08/27/17 09 :00] levETIRAcetam [Keppra] 750 mg PO BID 09/08/16 [Last Taken 08/27/17 09:00] Aspirin EC [Aspirin EC 325 mg (*)] 325 mg PO DAILY #0 tab 09/18/16 [Last Taken 08/27/17] Metoprolol Tartrate [Lopressor 25 mg (*)] 25 mg PO BID #60 tab 09/18/16 [Last Taken 08/27/17 09:00] Clopidogrel Bisulfate [Plavix (*)] 75 mg PO DAILY 03/23/17 [Last Taken 08/27/17] Furosemide [Lasix 20 MG (*)] 20 mg PO DAILY 05/19/17 [Last Taken 08/27/17] AZITHROMYCIN [Z-PACK] 250 mg PO DAILY 08/28/17 [Last Taken 08/27/17 500mg] Albuterol [Proventil Inhaler HFA (*)] 1 - 2 puffs IH DAILY PRN 08/28/17 [Last Taken Unknown] Acetaminophen [Tylenol 325mg (*)] 650 mg PO Q4HRS PRN tab 08/29/17 [Last Taken Unknown] Cefpodoxime Proxetil [Vantin] 200 mg PO BID #14 tab 08/29/17 [Last Taken Unknown ] Sennosides/Docusate Sodium [Senokot-S] 1 tab PO BID #60 tab 08/29/17 [Last Taken Unknown] oxyCODONE IR [Oxycodone Ir (*)] 5 - 10 mg PO Q3HRS PRN #40 tab 08/29/17 [Last Taken Unknown] Fpc Antibiotics: Cefpodoxime 200mg bid PO Movie Editor Antibiotic Stop Date: 09/05/17 Discharge Medications: Refer to the Discharge Home Medication list for PRN reason. PICC Care - Routine: N/A - Orders Services needed: Home Care, Registered Nurse, Physical Therapy Home Care Face to Face: I certify that this patient was under my care and that I had the required [id number] encounter meeting the encounter requirements on the discharge day. My findings support the fact that the patient is homebound as defined in Home Care Face to Face Continued: CMS Chapter 7 Medicare Benefits Manual 30.1.1 , The condition of the patient is such that there exists a normal inability to leave home and consequently, leaving home would require a considerable and taxing effort. Oxygen: 4L NC continuous Diet Recommendation: no restrictions on diet Weigh Patient: weekly [place]: Not applicable Equipment: Please drain pleurex catheter as needed, educate patient/daughter - Follow Up Care Current Providers and Referrals: Eliot Zamorano MD [Medical Doctor] - 3-5 days Eliot Novak DO [Primary Care Provider] - As per Instructions
--- NOTE | 2017-08-29 10:56 | ASMTCMCOM ---
CM Note CM Note Notes: CM spoke w/ Elda RN and Dr. Clifton regarding d/c POC. Pt is being discharged today w/ supportive family and [facility]; RN services. CM notified [facility] that pt is discharging today. CM provided MONTANA Lerner w/ phone number to give report to [facility]. CM met w/ pt and family. Family is requesting to have [facility] stretcher to transfer pt. CM filled out the PCS form and made a copy for the chart. Daughter reports that she is unable to transport because she is unable to lift him into her truck. Pt has 1 prosthetic leg. CM available for changes. Date Signed: 08/29/2017 10:55 AM Electronically Signed By:JENNIFER Perez
--- NOTE | 2017-08-29 10:57 | PDMN ---
Medical Necessity Medical necessity: change to IP; los >2 mn for recurrent malignant pleural effusion & lung ca; requires pain control, R pleural tunneled cath for Pleurex & palliative care at home; per progress note & order 08/28/17
--- NOTE | 2017-08-29 12:34 | ASDISCHSUM ---
Discharge Information Plan Status:Home with Home Health Medically Cleared to Leave:08/29/2017 Discharge Date:08/29/2017 11:40 AM CM D/C Disposition: ADT D/C Disposition:[id number] Projected Discharge Date:08/29/2017 12:00 AM Transportation at D/C: Discharge Delay Reason: Follow-Up Date:08/29/2017 12:00 AM Discharge Slot: Final Diagnosis: Placement Information Patient Contact Information Contact Name:ALISHA Relationship:Daughter Address:[address] City:[place] Alternate Phone: [facility]/Zip Code:[place] [address] Email: Financial Information Financial Class: Primary Plan Desc:MEDICARE IP PART B ONLY Primary Plan Number:[id number] Secondary Plan Desc:MED[place] Secondary Plan Number:[id number] Assessment Information [facility] Initial CM Assessment Living Arrangements What is your living Answers: With Child(sandra) arrangement? Who do you live with? Type Of Residence What kind of residence do Answers: House you live in? Discharge Plan Comments Coordination Status Comments Notes: Chart reviewed and spoke w/ MONTANA Acosta. Pt is a 67 y/o man admitted w/ pleural effusion and elevated trop. Pt had an MRI today. Pt is getting a CATH put in. CM met w/ Jacqui, daughter who is MDPOA. She is requesting for HC with [facility] and requested February. OT/PT are ordered and awaiting recommendations. [facility] has been notified to start services when pt is medically stable to d/c. CM spoke w/ Jayla, a director of home care hospice and provided her updates. CM to follow. Date Signed: 08/28/2017 03:17 PM Electronically Signed By:JENNIFER Perez [facility] CM Progress Note CM Note CM Note Notes: CM spoke w/ Elda, RN and Dr. Clifton regarding d/c POC. Pt is being discharged today w/ supportive family and [facility]; RN services. CM notified [facility] that pt is discharging today. CM provided MONTANA Lerner w/ phone number to give report to [facility]. CM met w/ pt and family. Family is requesting to have [facility] stretcher to transfer pt. CM filled out the PCS form and made a copy for the chart. Daughter reports that she is unable to transport because she is unable to lift him into her truck. Pt has 1 prosthetic leg. CM available for changes. Date Signed: 08/29/2017 10:55 AM Electronically Signed By:JENNIFER Perez Intervention Information Intervention Type:*QUINTANILLA-Signed Date of Service:08/28/2017 10:46 AM Patient Type:Observation Staff Member:Allyson Ward Hours: Discipline: Severity: Comment: Intervention Type:*IM-Signed Date of Service:08/29/2017 11:00 AM Patient Type:Inpatient Staff Member:Allyson Ward Hours: Discipline: Severity: Comment:
== END 2017-08-29 11:40 | disposition home health service (06) | DRG 181 ==
LOC: EEVIPCON 20:35 → F2W 23:41 → OBSVTOIN 08-28 14:17
PROVIDERS: ADMIT Student in an Organized Health Care Education/Training Program; ATTEND Student in an Organized Health Care Education/Training Program
PROC: 0B9N30Z Drainage of Right Pleura with Drainage Device, Percutaneous Approach (ICD-10-PCS; principal; 2017-08-28)
DX: C34.11 Malignant neoplasm of upper lobe, right bronchus or lung (principal); J91.0 Malignant pleural effusion; J96.11 Chronic respiratory failure with hypoxia; N39.0 Urinary tract infection, site not specified; J98.11 Atelectasis; I25.10 Atherosclerotic heart disease of native coronary artery without angina pectoris; J44.9 Chronic obstructive pulmonary disease, unspecified; I69.354 Hemiplegia and hemiparesis following cerebral infarction affecting left non-dominant side; I10 Essential (primary) hypertension; Z99.81 Dependence on supplemental oxygen; Z92.3 Personal history of irradiation; Z89.512 Acquired absence of left leg below knee; Z95.5 Presence of coronary angioplasty implant and graft; Z95.1 Presence of aortocoronary bypass graft; Z86.718 Personal history of other venous thrombosis and embolism; F17.210 Nicotine dependence, cigarettes, uncomplicated
CPT/HCPCS: 97161-GP; 97166-GO; 97535-GO; A9585; C2617; G0378; G8978-GP-CJ; G8979-GP-CJ; G8980-GP-CJ; G8987-GO-CK; G8988-GO-CJ; J0696; J2310; J3010

== ENCOUNTER 2018-01-12 21:16 | Inpatient (IN) | payer OTHER, MEDICAID ==
[2018-01-12] MEDS ORDERED: HYDROmorphONE/DILAUDID 1 MG/ML INJ IVP ONE (21:39)
[2018-01-12] MEDS ORDERED: NS 1,000 ML IV ONE (21:39)
--- NOTE | 2018-01-12 21:39 | EDPHY ---
H & P Stated Complaint: L abd pain since 1600 HPI/ROS: HPI CHIEF COMPLAINT: Abdominal pain HISTORY OF PRESENT ILLNESS: Patient is a 67-year-old male with complicated medical history including active lung CA enrolled in hospice care, he presents emergency room with left-sided predominant left lower quadrant and left mid abdominal pain. He states this started he thinks around 4:00 p.m.. He states he thinks it started after he ate [employer]. He has not had any vomiting. He denies diarrhea. The pain is currently 6/10 left-sided. Additionally reports that he had some discomfort after he ate some [employer] in the epigastric region. He states he is chronically short of breath on oxygen. Denies recent fever. His main complaint this evening is left-sided abdominal pain. Past Medical History: lung CA, coronary disease with stent, peripheral vascular disease, malignant effusion, chronic hypoxic respiratory failure, UTI Past Surgical History: Drain in right lung, multiple stents including coronary artery stent, aortic stent Social History: Denies daily use drugs alcohol tobacco products. Family History: Noncontributory ROS REVIEW OF SYSTEMS: A comprehensive 10 point review of systems is otherwise negative aside from elements mentioned in the history of present illness. Exam Constitutional appears frail, elderly, thin, me seated triage nursing summary reviewed, vital signs reviewed, awake/alert. Eyes normal conjunctivae and sclera, EOMI, PERRLA. HENT normal inspection, atraumatic, moist mucus membranes, no epistaxis, neck supple/ no meningismus, no raccoon eyes. Respiratory decreased breath sounds bilaterally, normal breath sounds, no respiratory distress, no wheezing. Cardiovascular rate normal, regular rhythm, no murmur, no edema, distal pulses normal. Gastrointestinal tender palpation left-sided abdomen left lower quadrant left upper quadrant, no rebound, no guarding, normal bowel sounds, no distension, no pulsatile mass. Genitourinary no CVA tenderness. Musculoskeletal no midline vertebral tenderness, full range of motion, no calf swelling, no tenderness of extremities, no meningismus, good pulses, neurovascularly intact. Skin pink, warm, & dry, no rash, skin atraumatic. Neurologic awake, alert and oriented x 3, AAOx3, moves all 4 extremities equally, motor intact, sensory intact, CN II-XII intact, normal cerebellar, normal vision, normal speech. Psychiatric normal mood/affect. Heme/Lymph/Immune no lymphadenopathy. Differential diagnosis includes but is not limited to and in no particular order : Bowel obstruction, appendicitis, gallbladder disease, diverticulitis, colitis , enteritis, perforated viscus, gastritis, GERD, esophagitis, urinary tract infection, pyelonephritis, kidney stones Medical Decision Making: Plan for this patient IV establishment IV fluid bolus 1 L normal saline, IV Dilaudid for pain control, IV Phenergan for nausea, CT scan abdomen pelvis with IV contrast, check basic blood work, lactic acid, EKG, troponin, chest x-ray. Re-evaluate. Re-evaluation: EKG interpretation by me on record in [employer] system. Impression time of EKG 2212, sinus rhythm rate of [address] elevation no significant ST depression. CT scan chest x-ray reviewed. Chest x-ray shows a moderate to large right-sided pleural effusion with drain in place. CT scan abdomen pelvis with IV contrast called to me by Dr. Quiroz. No evidence of acute abnormality on CT. 1202: I did go re-evaluate this patient this time is abdomen is soft nontender he is not vomiting he states he feels much better after pain medicine. It Is additionally reported that he has been more short of breath than normal. Additionally his daughter at bedside who is his primary residential mortgage manager states that he has drain is not been draining as well as it usually does. I offered the patient admission for possible adjustment of his drain and shortness of breath and he has agreed for this. I will consult the hospitalist service for admission for worsening shortness of breath worsening pleural effusion and possible adjustment of his right chest drain. I have not found any acute evidence for his abdominal pain. Source: Patient - Personal History Current Tetanus/Diphtheria Vaccine: Unsure - Medical/Surgical History Hx Asthma: Yes Hx Chronic Respiratory Disease: No Hx Diabetes: No Hx Cardiac Disease: Yes Hx Renal Disease: No Hx Cirrhosis: No Hx Alcoholism: Yes Hx HIV/AIDS: No Hx Splenectomy or Spleen Trauma: No Other PMH: DVT left leg, has new blockages. 3 NM, htn. DVT, PAD, CAD, CVA L side defecits, CABG, L BKA, Lung cancer, - Social History Smoking Status: Heavy smoker Constitutional: Initial Vital Signs Temperature (C) 36.5 C 01/12/18 21:23 Heart Rate 83 01/12/18 21:23 Respiratory Rate 18 01/12/18 21:23 Blood Pressure 167/86 H 01/12/18 21:23 O2 Sat (%) 93 01/12/18 21:23 O2 Delivery Mode Oxymizer O2 (L/minute) 3 Allergies/Adverse Reactions: midazolam HCl [From Versed] Allergy (Intermediate, Verified 01/12/18 21:26) becomes violent diazepam Allergy (Unknown, Verified 01/12/18 21:26) becomes violent midazolam HCl Allergy (Unknown, Uncoded 08/29/17 14:52) becomes violent Home Medications: Medication Instructions Recorded Atorvastatin Calcium [Lipitor 40 40 mg PO DAILY 09/08/16 mg (*)] Citalopram [CeleXA 20 MG] 20 mg PO DAILY 09/08/16 Gabapentin [Neurontin 400 MG (*)] 800 mg PO HS 09/08/16 levETIRAcetam [Keppra] 750 mg PO BID 09/08/16 Aspirin EC [Aspirin EC 325 mg (*)] 325 mg PO DAILY #0 tab 09/18/16 Metoprolol Tartrate [Lopressor 25 25 mg PO BID #60 tab 09/18/16 mg (*)] Clopidogrel Bisulfate [Plavix (*)] 75 mg PO DAILY 03/23/17 Furosemide [Lasix 20 MG (*)] 20 mg PO DAILY 05/19/17 Albuterol [Proventil Inhaler HFA 1 - 2 puffs IH DAILY PRN 08/28/17 (*)] Acetaminophen [Tylenol 325mg (*)] 650 mg PO Q4HRS PRN tab 08/29/17 oxyCODONE IR [Oxycodone Ir (*)] 5 - 10 mg PO Q3HRS PRN #40 tab 08/29/17 Gabapentin [Neurontin 400 MG (*)] 400 mg PO DAILY 01/13/18 Medical Decision Making - Data Points Laboratory Results: Laboratory Results 01/12/18 21:35 01/12/18 21:35 Medications Given: Atorvastatin Calcium (Lipitor) 40 mg PO DAILY [facility] Stop: 07/12/18 08:59 Last Admin: 01/13/18 13:00 Dose: 40 mg Citalopram Hydrobromide (Celexa) 20 mg PO DAILY [facility] Stop: 07/12/18 11:44 Last Admin: 01/13/18 13:00 Dose: 20 mg Gabapentin (Neurontin) 400 mg PO DAILY [facility] Stop: 07/12/18 11:44 Last Admin: 01/13/18 13:00 Dose: 400 mg Gabapentin (Neurontin) 800 mg PO HS [facility] Stop: 07/12/18 20:59 Last Admin: 01/13/18 20:31 Dose: 800 mg Levetiracetam (Keppra) 750 mg PO BID [facility] Stop: 07/12/18 11:44 Last Admin: 01/13/18 20:31 Dose: 750 mg Metoprolol Tartrate (Lopressor) 25 mg PO BID [facility] Stop: 07/12/18 11:44 Last Admin: 01/13/18 20:31 Dose: 25 mg Discontinued Medications Hydromorphone HCl (Dilaudid) 0.5 mg IVP EDNOW ONE Stop: 01/12/18 21:40 Last Admin: 01/12/18 21:55 Dose: 0.5 mg Sodium Chloride (Ns) 1,000 mls @ 0 mls/hr IV EDNOW ONE; Wide Open PRN Reason: Protocol Stop: 01/12/18 21:40 Last Admin: 01/12/18 21:55 Dose: 1,000 mls Ceftriaxone Sodium/Dextrose (Rocephin 1 Gm (Premix)) 50 mls @ 100 mls/hr IV EDNOW ONE PRN Reason: Protocol Stop: 01/13/18 01:31 Last Admin: 01/13/18 01:07 Dose: 50 mls Promethazine HCl (Phenergan) 6.25 mg IVP ONCE ONE Stop: 01/12/18 21:50 Last Admin: 01/12/18 22:54 Dose: Not Given Departure - Departure Disposition: [facility] Acute Clinical Impression: Shortness of breath, Pleural effusion Abdominal pain Qualifiers: Abdominal location: unspecified location Qualified Code(s): R10.9 - Unspecified abdominal pain Condition: Fair
[2018-01-12 21:46] LABS: PLATELET COUNT 334 10^3/uL (150-400)
[2018-01-12] MEDS ORDERED: PROMETHAZINE HCL 25 MG/ML INJ IVP ONE (21:49)
[2018-01-12] MEDS ORDERED: IOPAMIDOL (ISOVUE-300) 100 ML BTL ONE (21:56)
[2018-01-12 21:58] LABS: PROTIME(PATIENT) 13.4 SEC (12.0-15.0)
--- NOTE | 2018-01-12 22:14 | CPEKG ---
Heart Rate: 73 RR Interval: 822 P-R Interval: 140 QRSD Interval: 82 QT Interval: 428 QTC Interval: 472 P [place]: 73 QRS [place]: 71 T Wave [place]: -75 EKG Severity - ABNORMAL ECG - EKG Impression: SINUS RHYTHM EKG Impression: LEFT ATRIAL ABNORMALITY EKG Impression: INFERIOR INFARCT, AGE INDETERMINATE EKG Impression: LATERAL LEADS ARE ALSO INVOLVED Electronically Signed By: Carlos Ruiz 13-Jan-2018 06:39:55
[2018-01-13] MEDS ORDERED: HYDROCODONE/APAP 5/325 TAB PO PRN (01:03)
[2018-01-13] MEDS ORDERED: ONDANSETRON 4 MG/2 ML VIAL IVP PRN (01:03)
[2018-01-13] MEDS ORDERED: HYDROmorphONE/DILAUDID 1 MG/ML INJ IVP PRN (01:03)
[2018-01-13 05:02] LABS: PLATELET COUNT 251 10^3/uL (150-400)
--- NOTE | 2018-01-13 07:37 | GHP ---
[f rep st] HISTORY AND PHYSICAL DATE OF ADMISSION: 01/13/2018 SOURCE: Patient is able to provide his history, but he is only a fair to poor historian. EMR was re viewed and case discussed with ED provider. CHIEF COMPLAINT: Epigastric left abdominal pain. HISTORY OF PRESENT ILLNESS: This is a pleasant 67-year-old gentleman with an unfortunate diagnosis o f lung cancer with persistent malignant effusion, who presents to the emergency department today with complaints of epigastric and left upper quadrant abdominal pain. Patient reports that he had gone o ut to eat [employer] and subsequently was not feeling well. He denies any fevers, chills, nausea, vo miting, diarrhea, increased cough from baseline, worsening shortness of breath or dysuria, hematuria. The patient is not currently undergoing any chemotherapy as he is not a candidate for palliation. Also of note, it was identified that patient was having slightly increased shortness of breath. His drain was having limited to no output in his right chest wall. REVIEW OF SYSTEMS: Negative except as noted above. ALLERGIES: To Valium and Versed. HOME MEDICATIONS: As per EMR. Oxycodone 5-10 p.o. q.3-4 hours p.r.n., Keppra 750 mg p.o. b.i.d., Se nokot 1 tab p.o. b.i.d., metoprolol tartrate 25 mg p.o. b.i.d., gabapentin 800 mg p.o. b.i.d., Lasix 20 mg p.o. daily, Plavix 75 mg p.o. daily, Celexa 20 mg p.o. daily, atorvastatin 40 mg p.o. daily, as pirin 325 mg p.o. daily, Proventil inhaler 1-2 puffs inhaled daily p.r.n., Tylenol 650 mg p.o. q.4 ho urs p.r.n. PAST MEDICAL HISTORY: Significant for lung cancer with malignant effusion, right DVT, history of UTI with ESBL in 2016, atrial fibrillation, history of GI bleed, urinary incontinence, seizures, CAD wit h history of stent placement, aortic aneurysm status post stenting, chronic hypoxic respiratory failu re with oxygen dependence, history of CVA with left-sided deficits. PAST SURGICAL HISTORY: Significant for right lung drain, left BKA, cardiac cath with stent, cataract extraction with lens placement. FAMILY HISTORY: Positive for cancer. SOCIAL HISTORY: The patient with history of tobacco use. No drugs or alcohol. COR STATUS: Full. PHYSICAL EXAMINATION: VITAL SIGNS: Upon arrival to the emergency department, initial blood pressure 167/86, heart rate 83, respiratory rate 18, O2 saturation 92% on room air with temperature 36.5. Cu rrent vitals available, blood pressure 170/71, heart rate of 67, pulse ox of 94% on OxyMask with 3 L/ minute, temperature 35.9. GENERAL: No acute distress, frail, cachectic, thin, chronically ill-appea ring gentleman, is lying quietly in bed asleep. He wakes easily to name. He is cooperative and plea dante. HEAD: Normocephalic, atraumatic. EYES: Pupils equal, round, reactive to light bilaterally a nd symmetric. No scleral icterus or conjunctival injection. Lens reflex appreciated bilaterally. M ucous membranes appear quite dry. Patient is edentulous. No oropharyngeal erythema or exudates. NE CK: Supple. Trachea midline. CV: Regular rate and rhythm. Slightly distant heart sounds. No mur murs, rubs, or gallops appreciated. Exam limited secondary to coarse breath sounds bilaterally. RES PIRATORY: Unlabored breathing. Patient with intermittent cough that is nonproductive, but sounds co ngested. He has bilateral coarse breath sounds with diminished air movement at the bases, right wors e than left. ABDOMEN: Concave with positive bowel sounds. Soft, nontender to palpation. No reboun d, guarding, or masses appreciated. : No suprapubic tenderness to palpation. No [place] catheter i n place. EXTREMITIES: Patient with generalized weakness, deconditioning. His left arm is contracte d and held close to his is body. Remainder of his extremities are mobile. MUSCULOSKELETAL: Grossly weakened in all extremities. Patient has a left BKA. NEURO: Left-sided weakness appears chronic a s noted above. Patient is oriented to person and place. PSYCH: Affect is slightly flat but patient is fatigued but he is otherwise cooperative and pleasant. LABORATORY STUDIES: 1. WBC is 5.98, H and H are 10.9 and 35.8, MCV of 78.0, platelet count is 251, no bands. 2. PT is 13.4, INR 1.00, PTT is 24.7. 3. Lactic acid is 1.3. 4. Sodium is 141, potassium 3.8, chloride 104, CO2 is 27, anion gap 10, BUN 22, creatinine 0.9. GFR greater than 60, glucose 128, down to 94, calcium 9.2, down 8.4, total protein 7.2, albumin 3.9, AST is 20, ALT is 34, alk phos is 151. Troponin is negative. 5. UA: Specific gravity greater than 1.035, pH of 6.0, 1+ protein, 1+ leukocyte esterase, wbc's 25- 50, rbc's 5-10, trace bacteria. Otherwise negative. 6. CT image reviewed, report is still pending. Nothing acute. Noted on chest x-ray and CT, enlargi ng pleural effusion. 7. EKG reviewed myself, normal sinus rhythm in the 70s with left atrial enlargement. Q-waves in the inferolateral leads. No acute ST elevations. QTc is 472. ASSESSMENT/PLAN: A 67-year-old unfortunate gentleman with history of lung cancer and malignant pleur al effusion with indwelling drain in place, who presents with complaints of acute epigastric and left upper quadrant abdominal pain. 1. Abdominal pain. Etiology is unclear. Patient did report eating prior to onset of symptoms. May have some underlying gastritis or esophagitis, but currently his symptoms are resolved. He did rece luis antonio some Dilaudid and Phenergan. Has not had a recurrence of his pain. 2. Enlarging malignant effusion with possibly occluded indwelling drain. IR will be consulted in e morning to assist with re-evaluation. 3. Lung cancer. Drain as noted above. Patient is not currently on palliative chemotherapy. 4. Chronic hypoxic respiratory failure. Patient is saturating well with several liters on OxyMask a t this time. 5. Pyuria. Patient denies any symptoms. He is afebrile. He has no leukocytosis. Patient did rece luis antonio a dose of Rocephin in the emergency department. A culture is pending. Patient is not immunocomp romised at this time. He is not on chemotherapy. We will hold off on further antibiotic use. 6. Anemia, likely of chronic disease. Patient without any evidence of active bleeding. We will con tinue to monitor. 7. Nausea, without vomiting. P.r.n. Zofran. 8. Chronic medical conditions. History of extended-spectrum beta-lactamase urinary tract infection or bacteriuria. Will place patient on precautions. Await culture. 9. Other chronic conditions. History of atrial fibrillation, currently in sinus, urinary incontinen ce, seizures, coronary artery disease, peripheral vascular disease, history of cerebrovascular accide nt with left-sided deficits, status post left below-knee amputation. 10. Fluids, electrolyte, nutrition. Patient is status post intravenous fluids in the emergency depa rtment. We will continue with some gentle intravenous fluid hydration. Patient will be n.p.o. pendi ng Interventional Radiology evaluation and then diet as tolerated. Dietary consult also will be cons ulted. Patient is quite cachectic. 11. Prophylaxis. Sequential compression devices, holding anticoagulation pending Interventional Rad iology evaluation. 12. Code status: Full. 13. Disposition: Patient admitted to observation on the medical floor at this time. /[id number]/MODL
--- NOTE | 2018-01-13 10:26 | ASMTCASEMG ---
Living Arrangements What is your living Answers: Alone arrangement? Who do you live with? Type Of Residence What kind of residence do Answers: House you live in? Discharge Plan Comments Coordination Status Comments Notes: Pt is a 67 y/o man admitted for shortness of breath and pleural effusion.Pt has lung cancer. Pt has a below the left knee amputation. OT has been ordered and awaiting recommendations. Needs are TBD at this time. CM to follow. Plan: TBD Date Signed: 01/13/2018 10:25 AM Electronically Signed By:JENNIFER Perez
[2018-01-13] MEDS ORDERED: oxyCODONE IR 5 MG TAB PO PRN (11:37)
[2018-01-13] MEDS ORDERED: ALBUTEROL 60 PUFFS/8 GM MDI IH PRN (11:37)
[2018-01-13] MEDS: METOPROLOL TARTRATE 25 MG TAB PO SCH ×2 (12:59→20:31)
[2018-01-13] MEDS: ATORVASTATIN CALCIUM 40 MG TAB PO SCH (13:00)
[2018-01-13] MEDS: GABAPENTIN 400 MG CAP PO SCH ×2 (13:00→20:31)
[2018-01-13] MEDS: CITALOPRAM 20 MG TAB PO SCH (13:00)
[2018-01-13] MEDS: levETIRAcetam 500 MG TAB PO SCH ×2 (13:00→20:31)
[2018-01-13] MEDS ORDERED: HYDROmorphONE/DILAUDID 2 MG/ML INJ IVP PRN (14:00)
--- NOTE | 2018-01-13 18:25 | HOSPPROG ---
Hospitalist Progress Note Assessment/Plan: Assessment: 67-year-old male presents with acute abdominal pain, found to have partially occluded PleurX catheter Plan: 1. Abdominal pain. Acute on chronic, unclear etiology, abdominal CT not demonstrating any clearly identifiable etiology, does not have any urinary symptoms to suspect a diagnosis of UTI -continue monitor -continue treat supportively 2. Malignant pleural effusion. Chronic, currently has indwelling PleurX catheter, demonstrated occlusion on CT -per patient's daughter, she has been able to drain maximum of 200-300 cc at a time, on evaluation by Dr. Rodney today, it would intermittently drain about 100 cc at a time -there are most likely has loculations, and small pocket, and discussed with Dr. Rodney, he has recommended US to eval for loculations which would frame the conversation as to whether the patient/daughter should continue to expect slow/limited drainage -given that this is malignant effusion, utilization of tPA would potentially be harmful and cause massive bleeding, and would not recommend that even if the area is loculated 3. Chronic hypoxic respiratory failure. Continue on supplemental oxygen, currently fluctuating between 3 and 6 L nasal cannula 4. Stage IV lung cancer. Patient currently has a palliative PleurX catheter, patient has received palliative consultations in the past, if additional consultation is required during this hospitalization, please consult with palliative and/or hospice -patient's family extensively cares for him at home and has been very capable at doing so leading up to this juncture 5. Paroxysmal atrial fibrillation. Continue on beta-sintia, anticoagulation 6. Coronary artery disease and peripheral arterial disease. Continue on home medications, currently no chest pain 7. Acute atelectasis. Adjacent to effusion, incentive spirometer, present on chest x-ray, personally interpreted 8. Anemia. Chronic, hemoglobin currently 10.9, currently no evidence of bleeding Diet. Regular Prophylaxis. High risk patient, currently on systemic anticoagulation Code. Full at present Disposition. Anticipated discharge is uncertain this time, anticipated length stay greater than 48 hr for reasonable medical necessity including malignant pleural effusion requiring further interventional radiology workup as outlined above, upgraded to inpatient admission status at this time. High-level of medical complexity, high risk patient for worsening morbidity given the conditions as outlined above. Subjective: Patient reported 1 episode of abdominal pain, currently improved, shortness of breath is ongoing Objective: Vital Signs Temp Pulse Resp BP Pulse Ox 36.2 C 60 18 122/59 H 98 01/13/18 15:12 01/13/18 15:12 01/13/18 15:12 01/13/18 15:12 01/13/18 15:12 Laboratory Results 01/13/18 04:07 01/13/18 04:07 01/12/18 01/13/18 01/14/18 05:59 05:59 05:59 Intake Total 1000 Output Total 200 250 Balance 800 -250 PT 13.4 SEC (12.0-15.0) 01/12/18 21:35 INR 1.00 (0.83-1.16) 01/12/18 21:35 - Physical Exam Constitutional: no apparent distress, not in pain, chronically ill appearing, uncomfortable Cardiovascular: No systolic murmur, No irregularly irregular, No tachycardia, No edema Respiratory: reduced air movement (Right posterior segment), inspiratory crackles (Right posterior segment), No expiratory wheeze, No bronchial breath sounds, No respiratory distress Gastrointestinal: normoactive bowel sounds, soft, non-tender abdomen, no palpable masses, No distension Genitourinary: no bladder fullness, no bladder tenderness, no renal bruits Neurologic: AAOx3, No facial droop Psychiatric: not anxious, not encephalopathic, flat affect, No agitated ICD10 Worksheet Patient Problems: Problems Problem Status Onset Extended spectrum beta lactamase (ESBL) resistance Acute ~08/28/17 Shortness of breath Acute Pleural effusion Acute Elevated troponin Acute Abnormal EKG Acute ESBL (extended spectrum beta-lactamase) producing bacteria infection Acute ~ DVT (deep venous thrombosis) Acute Elevated troponin I level Acute Anemia Acute Cardiac ischemia Acute Chest pain Acute Elevated INR Acute GI hemorrhage Acute Atrial fibrillation Acute Chronic Disease Mgmt/Transitional Care Acute Abdominal pain Acute Chest pain Acute Urinary incontinence Acute
--- NOTE | 2018-01-14 07:04 | PDMN ---
Medical Necessity Medical necessity: est los>2mn for acute on chronic abd pain of unclear etiology , malignant pleural effusion w/indwelling pleurX cath requiring further IR w/u, and high risk for worsening morbidity with high level medial complexity; comorbid st IV lung CA, chronic resp failure, PAF, CAD, acute atelectasis, and chronic anemia; per order and progress note 01/13/18
[2018-01-14 08:21] LABS: PLATELET COUNT 253 10^3/uL (150-400)
[2018-01-14] MEDS: ASPIRIN EC 325 MG TAB PO SCH (08:57)
[2018-01-14] MEDS: ATORVASTATIN CALCIUM 40 MG TAB PO SCH (08:58)
[2018-01-14] MEDS: CITALOPRAM 20 MG TAB PO SCH (08:58)
[2018-01-14] MEDS: FUROSEMIDE 20 MG TAB PO SCH (08:59)
[2018-01-14] MEDS: CLOPIDOGREL BISULFATE 75 MG TAB PO SCH (08:59)
[2018-01-14] MEDS: GABAPENTIN 400 MG CAP PO SCH ×2 (09:00→20:26)
[2018-01-14] MEDS: levETIRAcetam 500 MG TAB PO SCH ×2 (09:00→20:27)
[2018-01-14] MEDS: METOPROLOL TARTRATE 25 MG TAB PO SCH ×2 (09:00→20:27)
[2018-01-14] MEDS: ACETAMINOPHEN 325 MG TAB PO PRN (11:21)
[2018-01-14] MEDS: NICOTINE 21 MG/24 HR PATCH TD SCH (11:23)
[2018-01-14] MEDS ORDERED: SODIUM FERRIC GLUCONAT/SUCROSE 125 MG in NS 100 ML IV SCH ×2 (16:00→16:30)
[2018-01-14] MEDS ORDERED: BISACODYL 10 MG SUPP PR PRN (16:01)
[2018-01-14] MEDS ORDERED: MAGNESIUM HYDROXIDE 30 ML UDCUP PO PRN (16:01)
[2018-01-14] MEDS ORDERED: LACTULOSE 20 GM/30 ML UDCUP PO PRN (16:01)
[2018-01-14] MEDS ORDERED: POLYETHYLENE GLYCOL 3350 17 GM PKT PO PRN (16:01)
--- NOTE | 2018-01-14 16:07 | HOSPPROG ---
Hospitalist Progress Note Assessment/Plan: DIAGNOSES: -abdominal and chest pains * Most likely this is primarily caused by his malignant disease however he does have known coronary disease and could not rule out a coronary cause of some of his symptoms * I reviewed this in detail with the patient. He may not be a very good candidate for any type of intervention therapy, but if he does have significant ischemic burden could add Ranexa or other antianginal treatment, maximize of statin therapy to improve symptomatic scenario * At this time it would be appropriate to do further assessment for coronary status, will order Lexiscan stress but can't do today since he has had caffeine -malignant pleural effusions * I reviewed his ultrasound and there is no accessible pocket for aspiration, unfortunately will not likely be able to improve upon the current chest tube drainage for management of this; this appears to all be malignant disease -acute on chronic hypoxemic respiratory failure * Improving so far with current therapies but expect that this will gradually worsened due to his malignant disease * Multifactorial cause with COPD, effusion, cancers disease of pleura, question possible involvement of cardiac issues as above -suspect iron deficiency anemia with microcytosis present * Given his advanced lung cancer and lack of any treatment for that, unlikely that assessment for cause of this would be of benefit to him * Symptomatic early it might help him quite a bit to replace his iron so will give him some IV iron now and see if he tolerates oral iron -stage IV lung cancer -history of DVT -history of coronary disease with stents -history of seizure disorder PLANS: -Caffeine now and order Lexiscan stress test for tomorrow; if significant ischemic burden consider maximizing antianginal therapy. Doubt that any interventional therapy would be recommended or of real benefit -continue chest tube drainage -IV iron therapy -trial of oral iron to see how he tolerates it -would not do any diagnostic assessment for his iron deficiency at this time given his advanced lung cancer -will have further consent discussions with him regarding palliative care options SUBJECTIVE: Feels weak but is getting up and walking in the hallway Eating better Abdominal pain and chest pain overall notably improved but he still having some intermittent chest discomfort episodes OBJECTIVE Vitals reviewed: Overall stable without fever Exam: alert oriented skin warm dry color ok resps not labored lungs clear BSs heart regular abd soft nondistended nontender, bowel sounds present limbs warm, no edema iv site ok I reviewed laboratory dated today. At this time all stable. Does have microcytic red cell indices and would suspect iron deficiency anemia. I reviewed his ultrasound which shows no evidence of a drainable fluid collection from his chest, but has complex pleural disease due to his malignancy. I reviewed his EKGs and laboratory data within normal troponin. No evidence of any myocardial injury at this time Objective: Vital Signs Temp Pulse Resp BP Pulse Ox 36.5 C 57 L 16 127/57 H 97 01/14/18 11:27 01/14/18 11:27 01/14/18 11:27 01/14/18 11:27 01/14/18 11:27 Laboratory Results 01/14/18 07:57 01/14/18 07:57 01/13/18 01/14/18 01/15/18 06:59 06:59 06:59 Intake Total 1000 450 Output Total 300 150 325 Balance 700 300 -325 PT 13.4 SEC (12.0-15.0) 01/12/18 21:35 INR 1.00 (0.83-1.16) 01/12/18 21:35 - Time Spent With Patient Time Spent with Patient: greater than 35 minutes Time Spent with Patient: Greater than 35 minutes spent on this patients care, greater than 50% of time spent counseling, educating, and coordinating care regarding the above mentioned plan. ICD10 Worksheet Patient Problems: Problems Problem Status Onset Abdominal pain Acute Pleural effusion Acute Shortness of breath Acute Chronic Disease Mgmt/Transitional Care Acute Abnormal EKG Acute Anemia Acute Atrial fibrillation Acute Cardiac ischemia Acute Chest pain Acute Chest pain Acute DVT (deep venous thrombosis) Acute ESBL (extended spectrum beta-lactamase) producing bacteria infection Acute ~ Elevated INR Acute Elevated troponin Acute Elevated troponin I level Acute Extended spectrum beta lactamase (ESBL) resistance Acute ~08/28/17 GI hemorrhage Acute Urinary incontinence Acute
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
[2018-01-14] MEDS: SENNOSIDES/DOCUSATE SODIUM TAB PO SCH (20:28)
[2018-01-15] MEDS: ACETAMINOPHEN 325 MG TAB PO PRN ×2 (00:43→10:57)
[2018-01-15 07:20] VITALS: RESP 18
[2018-01-15] MEDS: ASPIRIN EC 325 MG TAB PO SCH (08:43)
[2018-01-15] MEDS: GABAPENTIN 400 MG CAP PO SCH (08:43)
[2018-01-15] MEDS: FUROSEMIDE 20 MG TAB PO SCH (08:43)
[2018-01-15] MEDS: CLOPIDOGREL BISULFATE 75 MG TAB PO SCH (08:43)
[2018-01-15] MEDS: levETIRAcetam 500 MG TAB PO SCH (08:43)
[2018-01-15] MEDS: CITALOPRAM 20 MG TAB PO SCH (08:43)
[2018-01-15] MEDS: ATORVASTATIN CALCIUM 40 MG TAB PO SCH (08:43)
[2018-01-15] MEDS: METOPROLOL TARTRATE 25 MG TAB PO SCH (08:45)
[2018-01-15] MEDS ORDERED: REGADENOSON 0.4 MG/5 ML SYR IVP ONE (09:20)
[2018-01-15] MEDS: SENNOSIDES/DOCUSATE SODIUM TAB PO SCH (10:21)
[2018-01-15] MEDS: NICOTINE 21 MG/24 HR PATCH TD SCH (10:47)
--- NOTE | 2018-01-15 11:17 | PDIAF ---
- Diagnosis Diagnosis: lung cancer, malignant pleural effusion, constipation Code Status: Full Code - Medication Management Discharge Medications: Medications to Continue on Transfer Atorvastatin Calcium [Lipitor 40 mg (*)] 40 mg PO DAILY 09/08/16 [Last Taken ] Citalopram [CeleXA 20 MG] 20 mg PO DAILY 09/08/16 [Last Taken 01/12/18] Gabapentin [Neurontin 400 MG (*)] 800 mg PO HS 09/08/16 [Last Taken 01/11/18] levETIRAcetam [Keppra] 750 mg PO BID 09/08/16 [Last Taken 01/12/18 09:00] Aspirin EC [Aspirin EC 325 mg (*)] 325 mg PO DAILY #0 tab 09/18/16 [Last Taken 01/12/18] Metoprolol Tartrate [Lopressor 25 mg (*)] 25 mg PO BID #60 tab 09/18/16 [Last Taken 01/12/18 09:00] Clopidogrel Bisulfate [Plavix (*)] 75 mg PO DAILY 03/23/17 [Last Taken 01/12/18] Furosemide [Lasix 20 MG (*)] 20 mg PO DAILY 05/19/17 [Last Taken 01/12/18] Albuterol [Proventil Inhaler HFA (*)] 1 - 2 puffs IH DAILY PRN 08/28/17 [Last Taken Unknown] Acetaminophen [Tylenol 325mg (*)] 650 mg PO Q4HRS PRN tab 08/29/17 [Last Taken Unknown] oxyCODONE IR [Oxycodone Ir (*)] 5 - 10 mg PO Q3HRS PRN #40 tab 08/29/17 [Last Taken 01/12/18] Gabapentin [Neurontin 400 MG (*)] 400 mg PO DAILY 01/13/18 [Last Taken 01/12/18] Discharge Medications: Refer to the Discharge Home Medication list for PRN reason. - Orders Services needed: Home Care, Registered Nurse Home Care Face to Face: I certify that this patient was under my care and that I had the required [id number] encounter meeting the encounter requirements on the discharge day. My findings support the fact that the patient is homebound as defined in Home Care Face to Face Continued: CMS Chapter 7 Medicare Benefits Manual 30.1.1 , The condition of the patient is such that there exists a normal inability to leave home and consequently, leaving home would require a considerable and taxing effort. Isolation Type: Contact Isolation Diet Recommendation: no restrictions on diet Diet Texture: Regular Texture Diet Activity/Weight Bearing Restrictions: Full weightbear Equipment: Leg prosthesis for BKA - Follow Up Care Current Providers and Referrals: Eliot Novak DO [Primary Care Provider] - As per Instructions Eliot Zamorano MD [Medical Doctor] -
--- NOTE | 2018-01-15 11:21 | PDDCSUM ---
Discharge Summary Discharge Summary: DISCHARGE DIAGNOSES: -left upper quadrant abdominal pain, resolved, appears to been due to constipation -chest discomfort, resolved no evidence of acute heart issues -persistent right malignant pleural effusion with [place] drain in place -stage IV lung cancer -COPD with chronic hypoxemic respiratory failure PROCEDURES: Ultrasound of chest showing no drainable collection other than the fluid currently removed by Cam drain Lexiscan stress test with myocardial perfusion imaging showing no evidence of myocardial perfusion defects CT scan of abdomen with no evidence of a cause of his pain HOSPITAL COURSE SUMMARY: This patient with end-stage lung cancer and advanced COPD came into the hospital because of left upper quadrant abdominal pain. There were no acute findings to suggest a definite cause and he did not have any signs of infection or of a surgical cause of pain. It was presumed due to constipation and the pain in fact is now relieved after bowel movements. He did have 1 episode of chest pain here and with his history of coronary disease we did do Lexiscan stress testing to be sure it was not a coronary issue bringing him in. There was no evidence of perfusion defects on that study and he has not had any further symptoms that sound at all like cardiac disease here. He is not in heart failure. The patient does have known stage IV lung cancer with a right pleural effusion and [place] drain in place. The amount of fluid removed by the drain had been decreasing over time but is chest x-ray shows what looks like possibly increased fluid. On ultrasound however he has very complex multi loculated fluid with lot of scarring and there was really no drainable collection other than the fluid location where the Cam drain is in place. There is no evidence of acute pleural pulmonary infection here. His chronic dyspnea and hypoxemia are at his baseline here. He is able to get up and walk in the hallway. At this time he is felt stable for discharge to home. He will continue have fluid drained from his chest via the [place] drain. Will continue his previous medicines. The patient had previously been a hospice patient with [facility] but he was not comfortable with that. It sounds like he and his family would like to continue palliative care but not under hospice program so they will work with [facility]. PENDING TEST RESULTS: None MEDICATION CHANGES: None FOLLOW-UP PLAN: Patient is to make a follow-up appoint with Dr. Eliot Zamorano as well as with his primary care physician The patient will be reassessed by the [facility] for palliative care; he had previously been hospice patient without organization Greater than 35 minutes bedside and care coordination time today
[2018-01-15 11:31] VITALS: BP 128/61; PULSE 59; TEMP 97.6; O2SAT 95
--- NOTE | 2018-01-15 11:38 | CPR ---
[f rep st] NONINVASIVE CARDIAC PROCEDURE REPORT PROCEDURE: Lexiscan injection, myocardial perfusion imaging study. INDICATION FOR PROCEDURE: Chest pressure, unable to run on treadmill. PRE: After obtaining informed consent and assuring patient's n.p.o. status of caffeine for greater t krueger 12 hours, patient was placed on electrocardiogram. Initial EKG shows sinus rhythm, normal axis, noted inverted T-waves in inferolateral leads, initial blood pressure 98/60, saturation 98% on 6 L Ox yMask. Patient denies any chest pain or symptoms suggestive of ischemia. INJECTION: Patient was given Lexiscan slow IV push followed by nuclear isotope. Within 1 minute pos t injection, patient did report some mild shortness of breath and midsternal chest pressure. His giancarlo ctrocardiogram remained unchanged, except he was noted to have a 6-beat run of a wide-complex tachyca rdia, probable nonsustained VT, and converted back into regular sinus. He was asymptomatic of these beats. His vital signs remained stable, with blood pressure of 114/60, saturating 99%. Within 4 min utes, patient reporting symptoms mostly resolved. He was given caffeinated beverage, which helped. Within 6 minutes post injection, all symptoms had resolved, his vital signs remained stable, and EKG returned back to baseline. Final blood pressure 132/62, heart rate 85, saturation 98%. IMPRESSION: 67-year-old male with lung cancer, undergoing myocardial perfusion imaging study for amelia luation of chest pain for possible cardiac ischemia. Patient was noted within 1 minute post injectio n of having a 6-beat run of wide-complex tachycardia, probable nonsustained ventricular tachycardia. Asymptomatic. No other significant electrocardiogram changes. Patient did report some mild chest p ressure and shortness of breath, which subsided within 6 minutes post injection. Vital signs are cur rently stable. He is asymptomatic. He will finish poststress imaging in Nuclear Medicine at this [facility]. /[id number]/MODL
--- NOTE | 2018-01-15 13:22 | ASMTLACE ---
LACE Length of stay for Answers: 3 days current admission Acuity / Level of Answers: Yes Care: Did the patient have an inpatient admission? Comorbidities - select Answers: Coronary Atery Disease all that apply Palliative care / End of life trajectory Peripheral vascular disease Other Notes: Lung Ca # of Emergency department Answers: 1-2 visits in the last 6 months Score: 13 Date Signed: 01/15/2018 01:21 PM Electronically Signed By:Daphne Biswas RN
== END 2018-01-15 14:45 | disposition home health service (06) | DRG 391 ==
LOC: EDUNIT# → EEVIPCON 21:16 → OBSVTOIN 01-13 00:06 → UNDOADMOB 01-13 00:06 → EEVIPCON 01-13 00:06 → INTOOBSV 01-13 00:06 → OBSVTOIN 01-13 01:03 → F3E 01-13 01:03
PROVIDERS: ADMIT Family Medicine; ATTEND Internal Medicine
DX: K59.00 Constipation, unspecified (principal); R07.9 Chest pain, unspecified; C34.90 Malignant neoplasm of unspecified part of unspecified bronchus or lung; J91.0 Malignant pleural effusion; J96.21 Acute and chronic respiratory failure with hypoxia; J44.9 Chronic obstructive pulmonary disease, unspecified; I25.10 Atherosclerotic heart disease of native coronary artery without angina pectoris; I48.0 Paroxysmal atrial fibrillation; D50.9 Iron deficiency anemia, unspecified; I25.2 Old myocardial infarction; F17.210 Nicotine dependence, cigarettes, uncomplicated; Z95.5 Presence of coronary angioplasty implant and graft; Z95.1 Presence of aortocoronary bypass graft; Z89.512 Acquired absence of left leg below knee; Z87.440 Personal history of urinary (tract) infections; Z86.73 Personal history of transient ischemic attack (TIA), and cerebral infarction without residual deficits
CPT/HCPCS: 96374; 97161-GP; A9500; C1769; G8978-GP-CK; G8979-GP-CJ; J0696; J1170; J2785; J2916; Q9967

== ENCOUNTER → 2018-02-12 | Outpatient (CLI) | payer OTHER, MEDICAID | LOC: SUPIMAGING 14:12 | PROVIDERS: ATTEND Family Medicine | DX: M25.552 Pain in left hip (principal); Z85.118 Personal history of other malignant neoplasm of bronchus and lung | CPT/HCPCS: 73502-PN ==

== ENCOUNTER 2018-02-17 21:34 | Emergency (ER) | payer OTHER, MEDICAID ==
--- NOTE | 2018-02-17 21:51 | CPEKG ---
Heart Rate: 87 RR Interval: 690 P-R Interval: 140 QRSD Interval: 78 QT Interval: 412 QTC Interval: 496 P [place]: -41 QRS [place]: 74 T Wave [place]: -41 EKG Severity - BORDERLINE ECG - EKG Impression: SINUS RHYTHM EKG Impression: CONSIDER INFERIOR INFARCT EKG Impression: BORDERLINE PROLONGED QT INTERVAL Electronically Signed By: Tino Jolley 18-Feb-2018 11:16:06
[2018-02-17 21:52] VITALS: TEMP 97.9
[2018-02-17 22:11] VITALS: RESP 18
[2018-02-17] MEDS ORDERED: HYDROmorphONE/DILAUDID 2 MG/ML INJ IVP ONE (23:12)
[2018-02-17] MEDS ORDERED: KETOROLAC 15 MG/1 ML SDV IVP ONE (23:12)
--- NOTE | 2018-02-17 23:16 | EDPHY ---
H & P Stated Complaint: back pain after fell today Time Seen by Provider: 02/17/18 22:56 HPI/ROS: HPI The patient presents with a fall which occurred at 5:00 a.m. This morning. His daughter was not home which she was monitoring him on a video camera and noted that he got out of bed, went to his desk and was looking for a pack of cigarettes to smoke when he fell backwards landing on a wooden floor. He was not able to get up on his own. He had to wait until she returned to get him up. He has had pain throughout the day which is not improved with Motrin, lidocaine topical patches. He does not have any numbness or weakness of his legs. He is feeling weak, however this is his baseline. He does not have any dizziness or lightheadedness. REVIEW OF SYSTEMS Constitutional: No fever, no chills. Eyes: No discharge. ENT: No sore throat. Cardiovascular: Positive for chest pain, no palpitations. Respiratory: No cough, no shortness of breath. Gastrointestinal: No abdominal pain, no vomiting. Genitourinary: No hematuria. Musculoskeletal: No back pain. Skin: No rashes. Neurological: No headache. PMHx: Lung cancer, stage IV, COPD on oxygen, history of BKA, history of CAD Soc Hx: Lives at home with his daughter who provides his care PHYSICAL General Appearance: Alert, no distress Eyes: Pupils equal and round no pallor or injection ENT, Mouth: Mucous membranes moist Respiratory: There are no retractions, lungs are clear to auscultation Cardiovascular: Regular rate and rhythm Gastrointestinal: Abdomen is soft and non-tender, no masses, bowel sounds normal Back: There is tenderness to palpation in the mid thoracic spine at the midline with paraspinal tenderness bilaterally, there are no skin changes Neurological: A&O, moves all extremities Skin: Warm and dry, no rashes Musculoskeletal: Neck is supple non tender Extremities: symmetrical, full range of motion Psychiatric: Patient is oriented X 3, there is no agitation Source: Patient Exam Limitations: No limitations - Personal History Current Tetanus Diphtheria and Acellular Pertussis (TDAP): Yes - Medical/Surgical History Hx Asthma: Yes Hx Chronic Respiratory Disease: No Hx Diabetes: No Hx Cardiac Disease: Yes Hx Renal Disease: No Hx Cirrhosis: No Hx Alcoholism: Yes Hx HIV/AIDS: No Hx Splenectomy or Spleen Trauma: No Other PMH: DVT left leg, has new blockages. 3 [place], htn. DVT, PAD, CAD, CVA L side defecits, CABG, L BKA, Lung cancer, - Social History Smoking Status: Heavy smoker Constitutional: Initial Vital Signs Temperature (C) 36.6 C 02/17/18 21:35 Heart Rate 87 02/17/18 21:35 Respiratory Rate 20 02/17/18 21:35 Blood Pressure 144/76 H 02/17/18 21:35 O2 Sat (%) 96 02/17/18 21:35 O2 Delivery Mode Nasal Cannula O2 (L/minute) 4 Allergies/Adverse Reactions: midazolam HCl [From Versed] Allergy (Intermediate, Verified 02/17/18 21:42) becomes violent diazepam Allergy (Unknown, Verified 02/17/18 21:42) becomes violent midazolam HCl Allergy (Unknown, Uncoded 02/17/18 21:42) becomes violent Home Medications: Medication Instructions Recorded Atorvastatin Calcium [Lipitor 40 40 mg PO DAILY 09/08/16 mg (*)] Citalopram [CeleXA 20 MG] 20 mg PO DAILY 09/08/16 Gabapentin [Neurontin 400 MG (*)] 800 mg PO HS 09/08/16 levETIRAcetam [Keppra] 750 mg PO BID 09/08/16 Aspirin EC [Aspirin EC 325 mg (*)] 325 mg PO DAILY #0 tab 09/18/16 Metoprolol Tartrate [Lopressor 25 25 mg PO BID #60 tab 09/18/16 mg (*)] Clopidogrel Bisulfate [Plavix (*)] 75 mg PO DAILY 03/23/17 Furosemide [Lasix 20 MG (*)] 20 mg PO DAILY 05/19/17 Albuterol [Proventil Inhaler HFA 1 - 2 puffs IH DAILY PRN 08/28/17 (*)] Acetaminophen [Tylenol 325mg (*)] 650 mg PO Q4HRS PRN tab 08/29/17 oxyCODONE IR [Oxycodone Ir (*)] 5 - 10 mg PO Q3HRS PRN #40 tab 08/29/17 Gabapentin [Neurontin 400 MG (*)] 400 mg PO DAILY 01/13/18 Medical Decision Making - Diagnostics EKG Interpretation: EKG: Complete interpretation has been separately recorded in the [facility] archive. Summary impression: Normal sinus rhythm Imaging Results: Imaging Impressions Chest X-Ray 02/17/18 23:12 Impression: 1. Moderate right pleural thickening and effusion are increased. 2. Patchy right upper lobe atelectasis and/or consolidation is also increased. Thoracic Spine X-Ray 02/17/18 23:13 Impression: No acute osseous abnormalities. Differential Diagnosis: This is a 67-year-old male, brought in by ambulance, with history of COPD and end-stage lung cancer presents with a fall which occurred at 5:00 a.m. With ongoing midthoracic back pain with no neurologic deficit. On exam, he is tender at the midline as well as laterally. Differential diagnosis includes thoracic spinal fracture, musculoskeletal pain, muscle spasm. In the emergency department, IV line was placed. Patient was given Toradol in low dose of Dilaudid for pain with much improvement in his symptoms. He had a thorascopic x-ray performed which showed no acute fracture. Chest x-ray did show increased pleural effusion as compared to prior x-ray. The patient's daughter corroborates that she has been draining more fluid from the patient's PleurX tube. Labs were checked and were unremarkable except for slightly elevated BUN suggestive of dehydration. I have explained this to them. The patient felt well enough to go home and will be discharged. The family has Percocet at home and can use this for pain. - Data Points Laboratory Results: Laboratory Results 02/17/18 21:35 02/17/18 21:35 02/17/18 02/17/18 21:35 21:35 WBC 11.35 10^3/uL H 10^3/uL (3.80-9.50) RBC 5.74 10^6/uL 10^6/uL (4.40-6.38) Hgb 14.2 g/dL g/dL (13.7-17.5) Hct 44.8 % % (40.0-51.0) MCV 78.0 fL L fL (81.5-99.8) MCH 24.7 pg L pg (27.9-34.1) MCHC 31.7 g/dL L g/dL (32.4-36.7) RDW 20.0 % H % (11.5-15.2) Plt Count 317 10^3/uL 10^3/uL (150-400) MPV 8.8 fL fL (8.7-11.7) Neut % (Auto) 89.5 % H % (39.3-74.2) Lymph % (Auto) 4.5 % L % (15.0-45.0) [place] % (Auto) 5.1 % % (4.5-13.0) Eos % (Auto) 0.1 % L % (0.6-7.6) Baso % (Auto) 0.4 % % (0.3-1.7) Nucleat RBC Rel Count 0.0 % % (0.0-0.2) Absolute Neuts (auto) 10.15 10^3/uL H 10^3/uL (1.70-6.50) Absolute Lymphs (auto) 0.51 10^3/uL L 10^3/uL (1.00-3.00) Absolute Monos (auto) 0.58 10^3/uL 10^3/uL (0.30-0.80) Absolute Eos (auto) 0.01 10^3/uL L 10^3/uL (0.03-0.40) Absolute Basos (auto) 0.05 10^3/uL 10^3/uL (0.02-0.10) Absolute Nucleated RBC 0.00 10^3/uL 10^3/uL (0-0.01) Immature Gran % 0.4 % % (0.0-1.1) Immature Gran # 0.05 10^3/uL 10^3/uL (0.00-0.10) Sodium 137 mEq/L mEq/L (135-145) Potassium 4.3 mEq/L mEq/L (3.5-5.2) Chloride 95 mEq/L L mEq/L (97-110) Carbon Dioxide 27 mEq/l mEq/l (22-31) Anion Gap 15 mEq/L mEq/L (8-16) BUN 27 mg/dL H mg/dL (7-23) Creatinine 0.8 mg/dL mg/dL (0.7-1.3) Estimated GFR > 60 Glucose 162 mg/dL H mg/dL (70-100) Calcium 9.6 mg/dL mg/dL (8.5-10.4) Total Bilirubin 0.4 mg/dL mg/dL (0.1-1.4) AST 31 IU/L IU/L (17-59) ALT 70 IU/L IU/L (21-72) Alkaline Phosphatase 185 IU/L H IU/L (38-126) Total Protein 7.7 g/dL g/dL (6.3-8.2) Albumin 4.1 g/dL g/dL (3.5-5.0) Medications Given: Discontinued Medications Hydromorphone HCl (Dilaudid) 0.5 mg IVP EDNOW ONE Stop: 02/17/18 23:13 Last Admin: 02/17/18 23:39 Dose: 0.5 mg Ketorolac Tromethamine (Toradol) 15 mg IVP EDNOW ONE Stop: 02/17/18 23:13 Last Admin: 02/17/18 23:38 Dose: 15 mg Departure - Departure Disposition: Home, Routine, Self-Care Clinical Impression: Pleural effusion Fall Qualifiers: Encounter type: initial encounter Qualified Code(s): W19.XXXA - Unspecified fall, initial encounter Back pain Qualifiers: Back pain location: thoracic back pain Chronicity: acute Back pain laterality: bilateral Qualified Code(s): M54.6 - Pain in thoracic spine Lung cancer Qualifiers: Laterality: unspecified laterality Lung location: unspecified part of lung Qualified Code(s): C34.90 - Malignant neoplasm of unspecified part of unspecified bronchus or lung Condition: Good Instructions: Back Pain (ED) Additional Instructions: Please return to the emergency department if your worse in any way. Your labs showed that your somewhat dehydrated you should make sure to drink plenty of fluids. Referrals: Eliot Novak DO [Primary Care Provider] - As per Instructions
[2018-02-17 23:22] LABS: PLATELET COUNT 317 10^3/uL (150-400)
--- NOTE | 2018-02-17 23:46 | CPEKG ---
Heart Rate: 86 RR Interval: 698 P-R Interval: 132 QRSD Interval: 80 QT Interval: 408 QTC Interval: 488 P [place]: 79 QRS [place]: 72 T Wave [place]: -29 EKG Severity - ABNORMAL ECG - EKG Impression: SINUS RHYTHM EKG Impression: LEFT ATRIAL ABNORMALITY EKG Impression: CONSIDER INFERIOR INFARCT EKG Impression: BORDERLINE PROLONGED QT INTERVAL Electronically Signed By: Tino Jolley 18-Feb-2018 11:16:15
[2018-02-18 00:25] VITALS: BP 112/67; PULSE 67; O2SAT 93
== END 2018-02-18 00:40 | disposition home or self-care (01) ==
LOC: EDUNIT#
DX: S29.9XXA Unspecified injury of thorax, initial encounter (principal); C34.90 Malignant neoplasm of unspecified part of unspecified bronchus or lung; J90 Pleural effusion, not elsewhere classified; J44.9 Chronic obstructive pulmonary disease, unspecified; F17.200 Nicotine dependence, unspecified, uncomplicated; I10 Essential (primary) hypertension; I25.810 Atherosclerosis of coronary artery bypass graft(s) without angina pectoris; Z79.82 Long term (current) use of aspirin; W06.XXXA Fall from bed, initial encounter
CPT/HCPCS: 71046; 72072; 93005; 96374; 96375; 99285; J1170; J1885